=== PATIENT | male | born 1955 | race American Indian/Alaskan Native ===

== ENCOUNTER 2017-02-10 08:24 | Emergency (ER) | payer MEDICARE ==
[2017-02-10 09:01] VITALS: BP 147/87
--- NOTE | 2017-02-10 10:07 | Emergency Department Report ---
- General Chief complaint: Skin/Abscess/Foreign Body Stated complaint: LIP SWOLLEN Time Seen by Provider: 02/10/17 09:48 Source: patient Mode of arrival: Ambulatory Limitations: No Limitations - History of Present Illness Initial comments: She comes into the ER today with complaints of right upper lip swelling. Patient states that approximately 3 weeks ago he went to the [place] and few days afterwards noticed that he had some bumps pop up on the right upper lip. Since that time he has been seen by another doctor and prescribed Bactroban ointment as well as clindamycin. Patient states that he started the clindamycin 2 days ago and that after starting that medicine his lips started swelling up more. Patient denies any throat closing or swelling. - Related Data Home Medications Medication Instructions Recorded Confirmed Last Taken Mth/Me Blue/Sod Phos/Phen/Hyos 1 each PO TID 07/26/15 04/05/16 07/26/15 [Uribel Capsule] Previous Rx's Medication Instructions Recorded Last Taken Type Aspirin [Aspirin TAB] 325 mg PO QDAY #30 tablet 01/27/14 Unknown Rx Atenolol [Tenormin] 25 mg PO BID #60 tablet 01/27/14 Unknown Rx Clopidogrel [Plavix] 75 mg PO QDAY #30 tablet 01/27/14 Unknown Rx Rosuvastatin (Nf) [Crestor] 20 mg PO QHS #20 tablet 01/27/14 Unknown Rx HYDROcodone/APAP 7.5-325 [[place] 1 each PO Q6HR PRN #25 tablet 05/16/14 Unknown Rx 7.5-325 mg TAB] Azithromycin [Zithromax] 250 mg PO QDAY #6 tablet 04/07/16 Unknown Rx Butalb/Acetamin/Caff 50-325-40 1 tab PO Q8HR PRN #10 tablet 04/07/16 Unknown Rx [Fioricet] Clopidogrel [Plavix] 75 mg PO QDAY #30 tablet 04/07/16 Unknown Rx Cephalexin [Keflex] 500 mg PO Q8HR #30 cap 02/10/17 Unknown Rx Sulfamethoxazole/Trimethoprim 1 each PO BID #20 tablet 02/10/17 Unknown Rx [Bactrim DS TAB] Allergies Allergy/AdvReac Type Severity Reaction Status Date / Time No Known Allergies Allergy Verified 04/05/16 06:24 Abscess Boil HPI - HPI Chief Complaint: Skin/Abscess/Foreign Body Stated Complaint: LIP SWOLLEN Time Seen by Provider: 02/10/17 09:48 Home Medications: Home Medications Medication Instructions Recorded Confirmed Last Taken Mth/Me Blue/Sod Phos/Phen/Hyos 1 each PO TID 07/26/15 04/05/16 07/26/15 [Uribel Capsule] Previous Rx's Medication Instructions Recorded Last Taken Type Aspirin [Aspirin TAB] 325 mg PO QDAY #30 tablet 01/27/14 Unknown Rx Atenolol [Tenormin] 25 mg PO BID #60 tablet 01/27/14 Unknown Rx Clopidogrel [Plavix] 75 mg PO QDAY #30 tablet 01/27/14 Unknown Rx Rosuvastatin (Nf) [Crestor] 20 mg PO QHS #20 tablet 01/27/14 Unknown Rx HYDROcodone/APAP 7.5-325 [[place] 1 each PO Q6HR PRN #25 tablet 05/16/14 Unknown Rx 7.5-325 mg TAB] Azithromycin [Zithromax] 250 mg PO QDAY #6 tablet 04/07/16 Unknown Rx Butalb/Acetamin/Caff 50-325-40 1 tab PO Q8HR PRN #10 tablet 04/07/16 Unknown Rx [Fioricet] Clopidogrel [Plavix] 75 mg PO QDAY #30 tablet 04/07/16 Unknown Rx Cephalexin [Keflex] 500 mg PO Q8HR #30 cap 02/10/17 Unknown Rx Sulfamethoxazole/Trimethoprim 1 each PO BID #20 tablet 02/10/17 Unknown Rx [Bactrim DS TAB] Allergies/Adverse Reactions: Allergies Allergy/AdvReac Type Severity Reaction Status Date / Time No Known Allergies Allergy Verified 04/05/16 06:24 ED Review of Systems ROS: Stated complaint: LIP SWOLLEN Other details as noted in HPI Constitutional: denies: chills, fever Eyes: denies: eye pain, eye discharge, vision change ENT: other (lip swelling). denies: ear pain, throat pain Respiratory: denies: cough, shortness of breath, wheezing Cardiovascular: denies: chest pain, palpitations Endocrine: no symptoms reported Gastrointestinal: denies: abdominal pain, nausea, diarrhea Genitourinary: denies: urgency, dysuria Musculoskeletal: denies: back pain, joint swelling, arthralgia Skin: denies: rash, lesions Neurological: denies: headache, weakness, paresthesias Psychiatric: denies: anxiety, depression Hematological/Lymphatic: denies: easy bleeding, easy bruising ED Past Medical Hx - Past Medical History Previous Medical History?: Yes Hx Hypertension: Yes Hx CVA: Yes (right side) Hx Congestive Heart Failure: No Hx Diabetes: No Hx GERD: No Hx Asthma: Yes Hx COPD: No Hx HIV: No - Surgical History Past Surgical History?: Yes Additional Surgical History: RIGHT WRIST, SHOULDER SURGERY. RIGHT KNEE SURGERY - Social History Smoking Status: Current Every Day Smoker Substance Use Type: Alcohol - Medications Home Medications: Home Medications Medication Instructions Recorded Confirmed Last Taken Type Aspirin [Aspirin TAB] 325 mg PO QDAY #30 tablet 01/27/14 04/05/16 Unknown Rx Atenolol [Tenormin] 25 mg PO BID #60 tablet 01/27/14 04/05/16 Unknown Rx Clopidogrel [Plavix] 75 mg PO QDAY #30 tablet 01/27/14 04/05/16 Unknown Rx Rosuvastatin (Nf) [Crestor] 20 mg PO QHS #20 tablet 01/27/14 04/05/16 Unknown Rx HYDROcodone/APAP 7.5-325 [[place] 1 each PO Q6HR PRN #25 tablet 05/16/14 04/05/16 Unknown Rx 7.5-325 mg TAB] Mth/Me Blue/Sod Phos/Phen/Hyos 1 each PO TID 07/26/15 04/05/16 07/26/15 History [Uribel Capsule] Azithromycin [Zithromax] 250 mg PO QDAY #6 tablet 04/07/16 Unknown Rx Butalb/Acetamin/Caff 50-325-40 1 tab PO Q8HR PRN #10 tablet 04/07/16 Unknown Rx [Fioricet] Clopidogrel [Plavix] 75 mg PO QDAY #30 tablet 04/07/16 Unknown Rx Cephalexin [Keflex] 500 mg PO Q8HR #30 cap 02/10/17 Unknown Rx Sulfamethoxazole/Trimethoprim 1 each PO BID #20 tablet 02/10/17 Unknown Rx [Bactrim DS TAB] ED Physical Exam - General Limitations: No Limitations General appearance: alert, in no apparent distress - Head Head exam: Present: atraumatic, normocephalic - Eye Eye exam: Present: normal appearance. Absent: conjunctival injection - ENT ENT exam: Present: mucous membranes moist, TM's normal bilaterally, normal external ear exam, other (right upper lip swelling with external pustular lesions noted in right upper must area. Lip swelling is not indurated and is nontender.) - Neck Neck exam: Present: normal inspection - Respiratory Respiratory exam: Present: normal lung sounds bilaterally. Absent: respiratory distress - Cardiovascular Cardiovascular Exam: Present: regular rate, normal rhythm. Absent: systolic murmur, diastolic murmur, rubs, gallop - GI/Abdominal GI/Abdominal exam: Present: soft, normal bowel sounds - Rectal Rectal exam: Present: deferred - Extremities Exam Extremities exam: Present: normal inspection - Back Exam Back exam: Present: normal inspection - Neurological Exam Neurological exam: Present: alert, oriented X3 - Psychiatric Psychiatric exam: Present: normal affect, normal mood - Skin Skin exam: Present: warm, dry, intact, normal color. Absent: rash ED Course Vital Signs 02/10/17 02/10/17 08:31 09:00 Temperature 98.5 F 97 F L Pulse Rate 79 69 Respiratory 16 18 Rate Blood Pressure 168/108 Blood Pressure 147/87 [Left] O2 Sat by Pulse 99 97 Oximetry ED Medical Decision Making - Medical Decision Making Patient is nontoxic and hemodynamically stable. Patient is concerned that he may be having a reaction to the newly prescribed antibiotic. I will have the patient stop such antibiotic and start him on Bactrim and Keflex combination. Patient does state that he has an appointment with dermatology tomorrow and that I have encouraged him to keep that appointment. Patient's swelling does not correlate with induration or cellulitis and it may be due to the newly prescribed medicine. Patient is in agreement treatment plan patient is stable for discharge. Critical care attestation.: If time is entered above; I have spent that time in minutes in the direct care of this critically ill patient, excluding procedure time. 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
== END 2017-02-10 10:49 | disposition home or self-care (01) ==
LOC: ED 08:24
DX: L73.9 Follicular disorder, unspecified (principal); I10 Essential (primary) hypertension; J45.909 Unspecified asthma, uncomplicated; F17.200 Nicotine dependence, unspecified, uncomplicated
CPT/HCPCS: 99282

== ENCOUNTER 2017-08-10 06:34 | Emergency (ER) | payer MEDICARE ==
[2017-08-10 07:24] VITALS: BP 146/90
[2017-08-10 08:14] LABS: Bilirubin,Urine NEG (Negative); Blood,Urine NEG (Negative); Ketones,Urine NEG (Negative); Leukocyte Esterase,Urine SM (Negative); Mucus,Urine FEW /HPF; Nitrite,Urine NEG (Negative); Protein,Urine <15 mg/dL mg/dL (Negative); Urobilinogen,Urine < 2.0 mg/dL (<2.0)
[2017-08-10] MEDS ORDERED: ZITHROMAX PO ONE (09:28)
[2017-08-10] MEDS ORDERED: ROCEPHIN IM ONE (09:28)
[2017-08-10] MEDS ORDERED: XYLOCAINE 1% MPF 5 mL INFILTRATI ONE (09:28)
--- NOTE | 2017-08-10 09:32 | Emergency Department Report ---
ED Male HPI - General Chief complaint: Urogenital-Male Stated complaint: URINE LEAKAGE Time Seen by Provider: 08/10/17 09:04 Source: patient Mode of arrival: Ambulatory Limitations: No Limitations - History of Present Illness Initial comments: This is a 62-year-old male nontoxic, well nourished in appearance, no acute signs of distress presents to the ED with c/o of penile discharge 1 week. Patient that he had a sexual intercourse without protection last week and developed the symptoms. Patient denies any penile lesions, dysuria, polyuria, hematuria, back pain, penile ulcers, testicular pain, testicular swelling, chest pain, shortness of breath, headache, fever, chills, nausea or vomiting. She denies any abdominal pain or pelvic pain. Denies any allergies. Past medical history includes CVA and asthma. MD Complaint: penile discharge -: week(s) (1) Location: penis Radiation: none Severity: mild Consistency: constant Improves with: none Worsens with: none discharge. denies: swelling, mass, rash, urinary retention, blood in urine, dysuria, fever, nausea/vomiting, incontinence - Related Data Home Medications Medication Instructions Recorded Confirmed Last Taken Meth/Meblue/Sod Phos/Psal/Hyos 1 each PO TID 07/26/15 04/05/16 07/26/15 [Uribel Capsule] Previous Rx's Medication Instructions Recorded Last Taken Type Aspirin [Aspirin TAB] 325 mg PO QDAY #30 tablet 01/27/14 Unknown Rx Atenolol [Tenormin] 25 mg PO BID #60 tablet 01/27/14 Unknown Rx Clopidogrel [Plavix] 75 mg PO QDAY #30 tablet 01/27/14 Unknown Rx Rosuvastatin (Nf) [Crestor] 20 mg PO QHS #20 tablet 01/27/14 Unknown Rx HYDROcodone/APAP 7.5-325 [[place] 1 each PO Q6HR PRN #25 tablet 05/16/14 Unknown Rx 7.5-325 mg TAB] Azithromycin [Zithromax] 250 mg PO QDAY #6 tablet 04/07/16 Unknown Rx Butalb/Acetamin/Caff 50-325-40 1 tab PO Q8HR PRN #10 tablet 04/07/16 Unknown Rx [Fioricet] Clopidogrel [Plavix] 75 mg PO QDAY #30 tablet 04/07/16 Unknown Rx Cephalexin [Keflex] 500 mg PO Q8HR #30 cap 02/10/17 Unknown Rx Sulfamethoxazole/Trimethoprim 1 each PO BID #20 tablet 02/10/17 Unknown Rx [Bactrim DS TAB] Allergies Allergy/AdvReac Type Severity Reaction Status Date / Time No Known Allergies Allergy Verified 04/05/16 06:24 ED Review of Systems ROS: Stated complaint: URINE LEAKAGE Other details as noted in HPI Constitutional: denies: chills, fever Eyes: denies: eye pain, eye discharge, vision change ENT: denies: ear pain, throat pain Respiratory: denies: cough, shortness of breath, wheezing Cardiovascular: denies: chest pain, palpitations Endocrine: no symptoms reported Gastrointestinal: denies: abdominal pain, nausea, diarrhea Genitourinary: discharge. denies: urgency, dysuria Musculoskeletal: denies: back pain, joint swelling, arthralgia Skin: denies: rash, lesions Neurological: denies: headache, weakness, paresthesias Psychiatric: denies: anxiety, depression Hematological/Lymphatic: denies: easy bleeding, easy bruising ED Past Medical Hx - Past Medical History Previous Medical History?: Yes Hx Hypertension: Yes Hx CVA: Yes (right side) Hx Congestive Heart Failure: No Hx Diabetes: No Hx GERD: No Hx Asthma: Yes Hx COPD: No Hx HIV: No - Surgical History Past Surgical History?: Yes Additional Surgical History: RIGHT WRIST, SHOULDER SURGERY. RIGHT KNEE SURGERY - Social History Smoking Status: Current Every Day Smoker Substance Use Type: Alcohol, Marijuana, Prescribed - Medications Home Medications: Home Medications Medication Instructions Recorded Confirmed Last Taken Type Aspirin [Aspirin TAB] 325 mg PO QDAY #30 tablet 01/27/14 04/05/16 Unknown Rx Atenolol [Tenormin] 25 mg PO BID #60 tablet 01/27/14 04/05/16 Unknown Rx Clopidogrel [Plavix] 75 mg PO QDAY #30 tablet 01/27/14 04/05/16 Unknown Rx Rosuvastatin (Nf) [Crestor] 20 mg PO QHS #20 tablet 01/27/14 04/05/16 Unknown Rx HYDROcodone/APAP 7.5-325 [[place] 1 each PO Q6HR PRN #25 tablet 05/16/14 04/05/16 Unknown Rx 7.5-325 mg TAB] Meth/Meblue/Sod Phos/Psal/Hyos 1 each PO TID 07/26/15 04/05/16 07/26/15 History [Uribel Capsule] Azithromycin [Zithromax] 250 mg PO QDAY #6 tablet 04/07/16 Unknown Rx Butalb/Acetamin/Caff 50-325-40 1 tab PO Q8HR PRN #10 tablet 04/07/16 Unknown Rx [Fioricet] Clopidogrel [Plavix] 75 mg PO QDAY #30 tablet 04/07/16 Unknown Rx Cephalexin [Keflex] 500 mg PO Q8HR #30 cap 02/10/17 Unknown Rx Sulfamethoxazole/Trimethoprim 1 each PO BID #20 tablet 02/10/17 Unknown Rx [Bactrim DS TAB] ED Physical Exam - General Limitations: No Limitations General appearance: alert, in no apparent distress - Head Head exam: Present: atraumatic, normocephalic - Eye Eye exam: Present: normal appearance - ENT ENT exam: Present: mucous membranes moist - Neck Neck exam: Present: normal inspection - Respiratory Respiratory exam: Present: normal lung sounds bilaterally. Absent: respiratory distress - Cardiovascular Cardiovascular Exam: Present: regular rate, normal rhythm. Absent: systolic murmur, diastolic murmur, rubs, gallop - GI/Abdominal GI/Abdominal exam: Present: soft, normal bowel sounds - Rectal Rectal exam: Present: deferred - exam: Present: normal inspection, urethral discharge. Absent: testicular tenderness, scrotal swelling, vertical testicular lie, circumcision External exam: Present: normal external exam. Absent: erythema, swelling, lesions, lacerations, ecchymosis - Extremities Exam Extremities exam: Present: normal inspection, full ROM, normal capillary refill. Absent: tenderness, pedal edema, joint swelling, calf tenderness - Back Exam Back exam: Present: normal inspection, full ROM. Absent: tenderness, CVA tenderness (R), CVA tenderness (L), muscle spasm, paraspinal tenderness, vertebral tenderness, rash noted - Neurological Exam Neurological exam: Present: alert, oriented X3, CN II-XII intact, normal gait, reflexes normal - Psychiatric Psychiatric exam: Present: normal affect, normal mood - Skin Skin exam: Present: warm, dry, intact, normal color. Absent: rash ED Course Vital Signs 08/10/17 07:22 Temperature 97.7 F Pulse Rate 76 Respiratory 18 Rate Blood Pressure 146/90 O2 Sat by Pulse 98 Oximetry - Reevaluation(s) Reevaluation #1: 08/10/17 09:31 Patient is speaking in full sentences with no signs of distress noted. ED Medical Decision Making - Medical Decision Making This is a 62-year-old male that presents with possible STD exposure. Patient is stable and was examined by me. UA obtained with normal limits. Patient refused gonorrhea/chlamydia swab. Patient stated he wants to be treated empirically. Patient received Rocephin and azithromycin ED. Patient was instructed to have partner be evaluated. Patient was instructed Follow-up with a primary care doctor in 3-5 days or if symptoms worsen and continue return to emergency room as soon as possible. At time time of discharge, the patient does not seem toxic or ill in appearance. No acute signs of distress noted. Patient agrees to discharge treatment plan of care. No further questions noted by the patient. Critical care attestation.: If time is entered above; I have spent that time in minutes in the direct care of this critically ill patient, excluding procedure time. ED Disposition Clinical Impression: Possible exposure to STD Disposition: DC-01 TO HOME OR SELFCARE Is pt being admited?: No Does the pt Need Aspirin: No Condition: Stable Instructions: Sexually Transmitted Diseases (ED), Safe Sex (ED) Additional Instructions: Follow-up with a primary care doctor in 3-5 days or if symptoms worsen and continue return to emergency room as soon as possible. Referrals: JACE MCNALLY MD [Primary Care Provider] - 3-5 Days BLAYNE PEREZ MD [Staff Physician] - 3-5 Days [facility] [place] [Outside] - 3-5 Days [facility] [Outside] - 3-5 Days Forms: Work/School Release Form(ED)
== END 2017-08-10 10:04 | disposition home or self-care (01) ==
LOC: ED 06:34
DX: R36.9 Urethral discharge, unspecified (principal); I10 Essential (primary) hypertension; J45.909 Unspecified asthma, uncomplicated; I63.9 Cerebral infarction, unspecified; F12.10 Cannabis abuse, uncomplicated; F17.200 Nicotine dependence, unspecified, uncomplicated; Z79.82 Long term (current) use of aspirin
CPT/HCPCS: 81001; 96372; 99283; J0696

== ENCOUNTER 2017-12-24 08:45 | Outpatient (CLI) | payer MEDICARE ==
--- NOTE | 2017-12-24 10:12 | XRay Report ---
Right foot 3 views: History: Trauma, swelling and pain. Findings: There is osteopenia. No periosteal reaction or lytic lesion or soft tissue calcification. Mild arthritic changes at the first and second tarsometatarsal joints and the interphalangeal joint second third fourth and fifth toes. Impression: Findings as detailed above. No evidence of acute fracture.
== END 2017-12-24 08:46 | disposition home or self-care (01) ==
LOC: XRAY 08:45
PROVIDERS: ATTEND Internal Medicine
DX: S99.921A Unspecified injury of right foot, initial encounter (principal); M19.071 Primary osteoarthritis, right ankle and foot; M85.871 Other specified disorders of bone density and structure, right ankle and foot; X58.XXXA Exposure to other specified factors, initial encounter; Y93.89 Activity, other specified; Y92.89 Other specified places as the place of occurrence of the external cause; Y99.8 Other external cause status

== ENCOUNTER 2018-01-18 15:04 | Emergency (ER) | payer MEDICARE ==
[2018-01-18] MEDS ORDERED: NORCO 5/325 PO ONE (16:02)
--- NOTE | 2018-01-18 16:05 | Emergency Department Report ---
Chief Complaint: Headache Stated Complaint: HEADACHE Time Seen by Provider: 01/18/18 15:56 - HPI History of Present Illness: 62-year-old male presents to the emergency department with a complaint of worsening of a chronic headache. He says it has been going on for weeks but worsened and became consistent over the past 4 days. He does have a history of headaches and also has a history of CVA with some right-sided deficits. However he denies any slurred speech, vision change, acute weakness or any acute neurological deficits. He tried some Tylenol and tramadol for his symptoms without much relief. He has a primary care physician but has not seen them regarding his symptoms. The headache is mostly left-sided. - ROS Review of Systems: Positive for headache Negative for vision change, slurred speech, numbness, weakness - Exam Vital Signs: Vital Signs 01/18/18 15:09 Temperature 98.7 F Pulse Rate 83 Respiratory 18 Rate Blood Pressure 143/85 O2 Sat by Pulse 96 Oximetry Physical Exam: Patient is in no acute distress. Extraocular motions intact. Heart and lungs sounds are normal to auscultation. MSE screening note: Focused history and physical exam performed. Due to findings the following was ordered: We will obtain a CT of the head without contrast. I have ordered a CBC and BNP. The patient will start off with a [place] for discomfort. ED Disposition for MSE Condition: Stable Referrals: PRIMARY CARE [Primary Care Provider] - 3-5 Days
[2018-01-18 17:30] LABS: Basophils % (Auto) 0.3 % (0.0-1.8); Eosinophils # (Auto) 0.1 K/mm3 (0.0-0.4); Eosinophils % (Auto) 0.6 % (0.0-4.3); Hematocrit 45.1 % (35.5-45.6); Hemoglobin 15.3 gm/dl (11.8-15.2); Lymphocytes # (Auto) 1.9 K/mm3 (1.2-5.4); Lymphocytes % (Auto) 22.8 % (13.4-35.0); Mean Corpuscular HGB Conc 34 % (32-34); Mean Corpuscular Hemoglobin 29 pg (28-32); Mean Corpuscular Volume 86 fl (84-94); Monocytes # (Auto) 0.9 K/mm3 (0.0-0.8); Monocytes % (Auto) 11.2 % (0.0-7.3); Platelet Count 152 K/mm3 (140-440); Red Blood Count 5.27 M/mm3 (3.65-5.03); Red Cell Distribution Width 14.3 % (13.2-15.2)
[2018-01-18 17:53] LABS: BUN/Creatinine Ratio 9; Blood Urea Nitrogen 7 mg/dL (9-20); Calcium 8.9 mg/dL (8.4-10.2); Hemolysis Index 22
--- NOTE | 2018-01-18 19:21 | Emergency Department Report ---
ED Headache HPI - General Chief Complaint: Headache Stated Complaint: HEADACHE Time Seen by Provider: 01/18/18 15:56 Source: patient Exam Limitations: physical impairment (walks with a cane secondary to stroke) - History of Present Illness Initial Comments: History of Present Illness: 62-year-old male presents to the emergency department with a complaint of worsening of a chronic headache. He says it has been going on for weeks but worsened and became consistent over the past 4 days. He does have a history of headaches and also has a history of CVA with some right-sided deficits. However he denies any slurred speech, vision change, acute weakness or any acute neurological deficits. He tried some Tylenol and tramadol for his symptoms without much relief. He has a primary care physician but has not seen them regarding his symptoms. The headache is located bilateral frontal lobe but mostly left-sided. She should also with nasal congestion and runny nose. Pain is 6 out of 10 and feels like pressure and achy. Timing/Duration: increasing, waxing and waning, other (4 weeks) Quality: moderate (6/10) Head Injury Location: frontal Recent Head Trauma: occasional headaches Modifying Factors: improves with: movement Associated Symptoms: facial pain, nasal congestion, nasal drainage. denies: confusion, fatigue, fever/chills, flushing, loss of consciousness, nausea/ vomiting, numbness in legs/feet, rash, seizures, sinus infection, stiff neck, vision changes, weakness Allergies/Adverse Reactions: Allergies No Known Allergies Allergy (Verified 01/18/18 15:09) Home Medications: Ambulatory Orders Aspirin [Aspirin TAB] 325 mg PO QDAY #30 tablet 01/27/14 Atenolol [Tenormin] 25 mg PO BID #60 tablet 01/27/14 Clopidogrel [Plavix] 75 mg PO QDAY #30 tablet 01/27/14 Rosuvastatin (Nf) [Crestor] 20 mg PO QHS #20 tablet 01/27/14 HYDROcodone/APAP 7.5-325 [Somers 7.5-325 mg TAB] 1 each PO Q6HR PRN #25 tablet Meth/Meblue/Sod Phos/Psal/Hyos [Uribel Capsule] 1 each PO TID 07/26/15 Azithromycin [Zithromax] 250 mg PO QDAY #6 tablet 04/07/16 Butalb/Acetamin/Caff 50-325-40 [Fioricet] 1 tab PO Q8HR PRN #10 tablet 04/07/16 Clopidogrel [Plavix] 75 mg PO QDAY #30 tablet 04/07/16 Cephalexin [Keflex] 500 mg PO Q8HR #30 cap 02/10/17 Sulfamethoxazole/Trimethoprim [Bactrim DS TAB] 1 each PO BID #20 tablet Amoxicillin/K Clav Tab [Augmentin 875 mg] 1 tab PO Q12HR 7 Days #14 tab Cetirizine HCl [ZyrTEC] 10 mg PO QDAY 14 Days #14 capsule 01/18/18 Fluticasone [Flonase] 1 spray NS QDAY 14 Days #1 bottle 01/18/18 ED Review of Systems ROS: Stated complaint: HEADACHE Other details as noted in HPI Comment: All other systems reviewed and negative Constitutional: denies: chills, fever Eyes: denies: eye pain, eye discharge, vision change ENT: congestion. denies: ear pain, throat pain Respiratory: denies: cough, shortness of breath, SOB with exertion, SOB at rest , wheezing Cardiovascular: denies: chest pain, palpitations, orthopnea, edema Gastrointestinal: denies: abdominal pain, nausea, diarrhea Genitourinary: denies: urgency, dysuria Musculoskeletal: denies: back pain, joint swelling, arthralgia Skin: denies: rash, lesions Neurological: headache. denies: weakness, numbness, paresthesias, confusion, vertigo ED Past Medical Hx - Past Medical History Previous Medical History?: Yes Hx Hypertension: Yes Hx CVA: Yes (right side) Hx Congestive Heart Failure: No Hx Diabetes: No Hx GERD: No Hx Asthma: Yes Hx COPD: No Hx HIV: No - Surgical History Past Surgical History?: Yes Additional Surgical History: RIGHT WRIST, SHOULDER SURGERY. RIGHT KNEE SURGERY - Family History Family history: hypertension - Social History Smoking Status: Never Smoker Substance Use Type: None - Medications Home Medications: Home Medications Medication Instructions Recorded Confirmed Last Taken Type Aspirin [Aspirin TAB] 325 mg PO QDAY #30 tablet 01/27/14 04/05/16 Unknown Rx Atenolol [Tenormin] 25 mg PO BID #60 tablet 01/27/14 04/05/16 Unknown Rx Clopidogrel [Plavix] 75 mg PO QDAY #30 tablet 01/27/14 04/05/16 Unknown Rx Rosuvastatin (Nf) [Crestor] 20 mg PO QHS #20 tablet 01/27/14 04/05/16 Unknown Rx HYDROcodone/APAP 7.5-325 [Somers 1 each PO Q6HR PRN #25 tablet 05/16/14 04/05/16 Unknown Rx 7.5-325 mg TAB] Meth/Meblue/Sod Phos/Psal/Hyos 1 each PO TID 07/26/15 04/05/16 07/26/15 History [Uribel Capsule] Azithromycin [Zithromax] 250 mg PO QDAY #6 tablet 04/07/16 Unknown Rx Butalb/Acetamin/Caff 50-325-40 1 tab PO Q8HR PRN #10 tablet 04/07/16 Unknown Rx [Fioricet] Clopidogrel [Plavix] 75 mg PO QDAY #30 tablet 04/07/16 Unknown Rx Cephalexin [Keflex] 500 mg PO Q8HR #30 cap 02/10/17 Unknown Rx Sulfamethoxazole/Trimethoprim 1 each PO BID #20 tablet 02/10/17 Unknown Rx [Bactrim DS TAB] Amoxicillin/K Clav Tab [Augmentin 1 tab PO Q12HR 7 Days #14 tab 01/18/18 Unknown Rx 875 mg] Cetirizine HCl [ZyrTEC] 10 mg PO QDAY 14 Days #14 capsule 01/18/18 Unknown Rx Fluticasone [Flonase] 1 spray NS QDAY 14 Days #1 bottle 01/18/18 Unknown Rx ED Physical Exam - General Limitations: Physical Limitation General appearance: alert, in no apparent distress - Head Head exam: Present: atraumatic, normocephalic, normal inspection, other (normal exam) - Eye Eye exam: Present: normal appearance, PERRL, EOMI. Absent: nystagmus, periorbital swelling, periorbital tenderness Pupils: Present: normal accommodation - ENT ENT exam: Present: normal orophraynx, mucous membranes moist, TM's normal bilaterally, normal external ear exam, other (nasal mucosa congested with erythema and clear drainage. Frontal sinuses tender to palpate.) - Neck Neck exam: Present: normal inspection, full ROM, other (no C-spine tenderness). Absent: tenderness, lymphadenopathy - Respiratory Respiratory exam: Present: normal lung sounds bilaterally. Absent: respiratory distress, chest wall tenderness, accessory muscle use - Cardiovascular Cardiovascular Exam: Present: regular rate, normal rhythm, normal heart sounds. Absent: systolic murmur, diastolic murmur - GI/Abdominal GI/Abdominal exam: Present: soft, normal bowel sounds. Absent: distended, tenderness, guarding, rebound, rigid, bruit, pulsatile mass - Extremities Exam Extremities exam: Present: normal inspection, full ROM, normal capillary refill , other (no clubbing, cyanosis or edema. +2 pulses to all extremities and no neurovascular compromise. Patient will right-sided weakness due to previous stroke. Right side is weaker than left side. He has full range of motion to all extremities but slow on the right side which is normal for him per patient) . Absent: tenderness, pedal edema, joint swelling, calf tenderness - Back Exam Back exam: Present: normal inspection, full ROM, other (ambulates without any difficulties but uses a cane which is normal for patient status post CVA). Absent: tenderness, CVA tenderness (R), CVA tenderness (L), muscle spasm, paraspinal tenderness, vertebral tenderness, rash noted - Neurological Exam Neurological exam: Present: alert, oriented X3, abnormal gait (this is chronic due to previous stroke and he ambulates with a cane), motor sensory deficit ( right-sided weakness status post CVA strength is 4/10 on right side and 5/5 on the left side), reflexes normal - Expanded Neurological Exam Expanded Neurological exam: Absent: innattentive, memory loss-remote event, memory loss- recent event, ataxia, receptive aphasia, expressive aphasia, total aphasia, tremor, protecting the airway Speech: Present: fluid speech Cranial nerves: EOM's Intact: Normal, Gag Reflex: Normal, Tongue Deviation: Normal, Nystagmus: Normal, Facial Sensation: Normal, Facial Palsy with Forehead Movement: Normal Cerebellar function: Finger to Nose: Normal, Romberg: Abnormal Right (chronic secondary to stroke.) Upper motor neuron: Pronator Drift: Abnormal Right (this is chronic secondary to stroke), Sensory Extinction: Normal Sensory exam: Upper Extremity Light Touch: Normal, Upper Extremity Temperature: Normal, UE 2 Point Discrimination: Normal, Lower Extremity Light Touch: Normal, Lower Extremity Temperature: Normal, LE 2 Point Discrimination: Normal Motor strength exam: RUE: 4, LUE: 5, RLE: 4, LLE: 5 Best Eye Response ([place]): (4) open spontaneously Best Motor Response (Brit): (6) obeys commands Best Verbal Response (Brit): (5) oriented Brit Total: 15 - Psychiatric Psychiatric exam: Present: normal affect, normal mood - Skin Skin exam: Present: warm, dry, intact, normal color. Absent: rash ED Course Vital Signs 01/18/18 01/18/18 01/18/18 15:09 16:13 19:26 Temperature 98.7 F 99.4 F Pulse Rate 83 82 Respiratory 18 16 16 Rate Blood Pressure 143/85 Blood Pressure 134/78 [Left] O2 Sat by Pulse 96 95 Oximetry - Reevaluation(s) Reevaluation #1: 01/18/18 19:59 Patient was given hydrocodone 5/325 one tablet in the emergency room which she reports that helped his pain. He is tolerating juices well without any difficulties. Patient and voiced relief of pain. ED Medical Decision Making - Lab Data Result diagrams: 01/18/18 16:49 01/18/18 16:49 Lab Results 01/18/18 01/18/18 Range/Units 16:49 16:49 WBC 8.5 (4.5-11.0) K/mm3 RBC 5.27 H (3.65-5.03) M/mm3 Hgb 15.3 H (11.8-15.2) gm/dl Hct 45.1 (35.5-45.6) % MCV 86 (84-94) fl MCH 29 (28-32) pg MCHC 34 (32-34) % RDW 14.3 (13.2-15.2) % Plt Count 152 (140-440) K/mm3 Lymph % (Auto) 22.8 (13.4-35.0) % Banner % (Auto) 11.2 H (0.0-7.3) % Eos % (Auto) 0.6 (0.0-4.3) % Baso % (Auto) 0.3 (0.0-1.8) % Lymph # 1.9 (1.2-5.4) K/mm3 Banner # 0.9 H (0.0-0.8) K/mm3 Eos # 0.1 (0.0-0.4) K/mm3 Baso # 0.0 (0.0-0.1) K/mm3 Seg Neutrophils % 65.1 (40.0-70.0) % Seg Neutrophils # 5.5 (1.8-7.7) K/mm3 Sodium 131 L (137-145) mmol/L Potassium 4.1 (3.6-5.0) mmol/L Chloride 93.7 L (98-107) mmol/L Carbon Dioxide 24 (22-30) mmol/L Anion Gap 17 mmol/L BUN 7 L (9-20) mg/dL Creatinine 0.8 (0.8-1.5) mg/dL Estimated GFR > 60 ml/min BUN/Creatinine Ratio 9 % Glucose 104 H (75-100) mg/dL Calcium 8.9 (8.4-10.2) mg/dL - Radiology Data Radiology results: report reviewed CT scan of the brain and head without contrast shows patient with old deep white matter infarct. Chronic right mastoiditis. Paranasal sinus thickness mucosal thickening . No acute findings - Medical Decision Making 62-year-old male here complaining of headache over the last 4 weeks. He also reports sinus congestion and nasal drainage and without any other symptoms. Patient was screened and labs and radiology tests ordered by Dr. Desir. I saw this patient and he is stable after treatment. He had CT scan done and was dictated by radiologist which showed no acute findings except Chronic mastoiditis which she does not have any tenderness at his mastoid bone and paranasal mucosal sinus thickening. Patient voiced understanding and laboratory results and CT scan results. CT scan-old deep white matter infarct. Chronic right mastoiditis. Paranasal sinus mucosal thickening as directed. Labs: CBC stable, CMP with mild hyponatremia at 131 A/P 1: Acute headache-resolved. Hydrocodone 5/325 mg 1 tablet emergency room for headache. 2: Sinusitis-we'll place on Zyrtec, Flonase and antibiotic. 3: Hyponatremia, mild-patient is able to tolerate liquids and food well. Sodium was at 131. Chart reviewed and he has a history of hyponatremia. Prescription for: Zyrtec, Flonase and Augmentin Discharge teaching composition molder in medication, diagnosis, treatment plan and follow- up. Patient voided understanding Patient discharged home from emergency room in stable condition to follow up with his primary care physician in one to 2 days. He is stable and pain is controlled. This starts teaching and given on sinusitis, acute headache and hyponatremia. I discussed him that he needs to make sure that he drinks Gatorade and eat normally to increase the sodium. I also instructed him to flush his nostrils with nasal saline spray at least twice a day to relieve congestion. CT scan results and laboratory results discussed the patient and he voiced understanding. Vital signs are stable and is afebrile. Discharged home from emergency room in stable condition. - Differential Diagnosis CVA, aneurysm, headache of unknown cause, sinusitis, rhinitis Critical care attestation.: If time is entered above; I have spent that time in minutes in the direct care of this critically ill patient, excluding procedure time. ED Disposition Clinical Impression: Hyponatremia Headache Qualifiers: Headache type: unspecified Headache chronicity pattern: acute headache Intractability: not intractable Qualified Code(s): R51 - Headache Sinusitis Qualifiers: Sinusitis location: unspecified location Chronicity: unspecified Qualified Code (s): J32.9 - Chronic sinusitis, unspecified Disposition: DC-01 TO HOME OR SELFCARE Is pt being admited?: No Does the pt Need Aspirin: No Condition: Stable Instructions: Sinusitis (ED), Hyponatremia (ED), Acute Headache (ED) Additional Instructions: Please follow-up with your primary care physician in one to 2 days. Call tomorrow to schedule an appointment Take medication as instructed Take nostrils out with saline nasal wash If headache recurs and not better with medication, please return to the emergency room Prescriptions: Amoxicillin/K Clav Tab [Augmentin 875 mg] 1 tab PO Q12HR 7 Days #14 tab Cetirizine HCl [ZyrTEC] 10 mg PO QDAY 14 Days #14 capsule Fluticasone [Flonase] 1 spray NS QDAY 14 Days #1 bottle Referrals: JAG VALENTIN MD [Staff Physician] - 2-3 Days PRIMARY CARE, [Primary Care Provider] - 2-3 Days
[2018-01-18 19:28] VITALS: BP 134/78
--- NOTE | 2018-01-19 14:30 | Cat Scan Report ---
FINAL REPORT PROCEDURE: CT head without contrast. TECHNIQUE: Computerized tomography of the head was performed without contrast material. HISTORY: Headache. COMPARISON: CT head 04/02/2016. FINDINGS: The ventricles are normal in size. There is some diminished attenuation within the deep white matter of the left frontal lobe. This involves a portion of the left parietal lobe as well. This is unchanged and is consistent with chronic ischemic injury. The remaining vargas matter and white matter appear normal. There are no mass lesions. There is no intracranial hemorrhage. The calvarium appears intact. There is some fluid in several of the right mastoid air cells. There is mild mucosal thickening in the right maxillary sinus. There is moderate mucosal thickening in the right frontal sinus and right anterior ethmoid air cells. IMPRESSION: Old deep white matter infarct. Chronic right mastoiditis. Paranasal sinus mucosal thickening as described.
== END 2018-01-18 20:24 | disposition home or self-care (01) ==
LOC: ED 15:04
DX: J32.9 Chronic sinusitis, unspecified (principal); E87.1 Hypo-osmolality and hyponatremia; R51 Headache; I10 Essential (primary) hypertension; Z86.73 Personal history of transient ischemic attack (TIA), and cerebral infarction without residual deficits; J45.909 Unspecified asthma, uncomplicated; Z79.82 Long term (current) use of aspirin
CPT/HCPCS: 36415; 70450; 80048; 85025

== ENCOUNTER 2019-01-05 12:48 | Outpatient (CLI) | payer MEDICARE ==
--- NOTE | 2019-01-05 13:53 | XRay Report ---
ROUTINE CHEST, TWO VIEWS: HISTORY: COPD. The trachea, heart, mediastinal contour, lung gomez and bony thorax are unremarkable. No significant change since 07/25/18. IMPRESSION: Unremarkable chest x-ray.
== END 2019-01-05 12:49 | disposition home or self-care (01) ==
LOC: XRAY 12:48
PROVIDERS: ATTEND Internal Medicine
DX: J44.9 Chronic obstructive pulmonary disease, unspecified (principal); E78.5 Hyperlipidemia, unspecified; E78.00 Pure hypercholesterolemia, unspecified
CPT/HCPCS: 71046

== ENCOUNTER 2019-08-23 18:10 | Emergency (ER) | payer MEDICARE ==
[2019-08-23 19:57] LABS: Bilirubin,Urine NEG (Negative); Blood,Urine LG (Negative); Color,Urine Yellow (Yellow); Mucus,Urine FEW /HPF; Protein,Urine <15 mg/dL mg/dL (Negative); RBC,Urine > 182.0 /HPF (0.0-6.0); Urobilinogen,Urine < 2.0 mg/dL (<2.0)
--- NOTE | 2019-08-24 01:00 | Cat Scan Report ---
CT ABDOMEN AND PELVIS WITHOUT CONTRAST INDICATION: Left-sided abdominal pain. TECHNICAL: Multiple axial CT images of the abdomen and pelvis were acquired without intravenous contr ast. Sagittal and coronal reformats were obtained. All CTs at this facility utilize dose reduction techniques including automated exposure control, iterative reconstruction and weight based dosing whe n appropriate to reduce patient radiation dose to as low as reasonable achievable. COMPARISON: No relevant prior studies are available for comparison. FINDINGS: Limited imaging of the bilateral lung bases demonstrates no evidence of acute abnormality. Abdomen: There are several scattered low-density lesions noted throughout the liver, the largest of w hich measures 1 cm. These are indeterminate due to their small size and difficult to evaluate without intravenous contrast. The gallbladder, spleen, pancreas, bilateral adrenal glands and bilateral kidn eys show no evidence of acute abnormality. There is a hypodense lesion within the upper pole of the l eft kidney measuring 2.8 cm. Additionally, there is a multi cystic lesion with peripheral calcificati ons within the lower pole of the left kidney measuring 4.1 x 3.7 cm. There is no associated hydroneph rosis. There is no evidence of bowel obstruction or free fluid. The appendix is visualized and appear s normal. Pelvis: There is moderate diverticulosis of the sigmoid colon without evidence for diverticulitis. Th e urinary bladder appears grossly normal. There is evidence of previous radiation therapy within the prostate. Bones and Soft Tissues: Evaluation of bony structures demonstrates no evidence of acute bony abnorma lity. There is degenerative disc space narrowing at the L5-S1 level. Evaluation of soft tissue struct ures demonstrates no acute soft tissue abnormality. IMPRESSION: 1. Multicystic lesion arising from the lower pole of the left kidney as described with peripheral julien cifications. Findings are concerning for a possible renal neoplasm, particularly in this patient with left-sided flank pain. A CT of the abdomen and pelvis with contrast when the patient's clinical cond ition permits would be helpful for additional evaluation. 2. Low density exophytic lesion within the upper pole of the right kidney which would also be better evaluated with CT of the abdomen and pelvis with contrast. 3. Scattered low density lesions within the liver which are indeterminate on the basis of today's radha dy. Signer Name: Carolyn Phillips MD Signed: 08/24/2019 12:56 AM Workstation Name: [employer]
--- NOTE | 2019-08-24 01:27 | Emergency Department Report ---
ED Male HPI - General Chief complaint: Urogenital-Male Stated complaint: BLOOD IN URINE Time Seen by Provider: 08/23/19 23:54 Source: patient Mode of arrival: Ambulatory Limitations: No Limitations - History of Present Illness Initial comments: Mr. Moore is a 64-year-old -[place] male with history of prostatitis , followed by urology. Patient presents today for hematuria bladder spasms 1 week. Patient denies fevers or chills there's no nausea vomiting. Patient currently not on a blood thinner. And has urology follow-up with Dr. Panchal. This is only sure he didn't have a bladder infection. As he has had hematuria in the past. There is no testicular swelling or penile discharge. MD Complaint: dysuria, other (hematuria) Onset/Timin -: week(s) Location: penis, right flank Severity: moderate Severity scale (0 -10): 4 Quality: aching Consistency: intermittent Improves with: none Worsens with: none blood in urine, dysuria. denies: discharge, swelling, mass, rash, urinary retention, fever, nausea/vomiting, incontinence - Related Data Sexually active: No Previous Rx's Medication Instructions Recorded Last Taken Type Aspirin 325 mg PO QDAY #30 tablet 01/27/14 Unknown Rx Rosuvastatin (Nf) [Crestor] 20 mg PO QHS #20 tablet 01/27/14 Unknown Rx atenoloL [Tenormin] 25 mg PO BID #60 tablet 01/27/14 Unknown Rx Clopidogrel [Plavix] 75 mg PO QDAY #30 tablet 04/07/16 Unknown Rx Albuterol Sulfate [Proair 90 mcg IH Q4HR PRN #2 aer.pow.ba 07/25/18 Unknown Rx Respiclick] Benzonatate [Tessalon Perles] 100 mg PO Q8HR PRN #30 capsule 07/25/18 Unknown Rx Fluticasone [Flonase] 1 spray NS QDAY #1 bottle 07/25/18 Unknown Rx Ibuprofen [Motrin] 400 mg PO Q8H PRN #30 tablet 07/25/18 Unknown Rx Nicotine [Nicotine Patch] 1 each TD QDAY #30 patch.td24 07/25/18 Unknown Rx Acetaminophen/Codeine [Tylenol 1 tab PO Q6H PRN #12 tab 08/24/19 Unknown Rx /Codeine # 3 tab] levoFLOXacin [Levaquin TAB] 500 mg PO QDAY #10 tablet 08/24/19 Unknown Rx Allergies Allergy/AdvReac Type Severity Reaction Status Date / Time No Known Allergies Allergy Verified 01/18/18 15:09 ED Review of Systems ROS: Stated complaint: BLOOD IN URINE Other details as noted in HPI Constitutional: denies: chills, fever Eyes: denies: eye pain, eye discharge, vision change ENT: denies: ear pain, throat pain Respiratory: denies: cough, shortness of breath, wheezing Cardiovascular: denies: chest pain, palpitations Endocrine: no symptoms reported Gastrointestinal: denies: abdominal pain, nausea, vomiting, diarrhea, constipation, melena Genitourinary: hematuria. denies: urgency, dysuria, frequency, testicular pain, testicular mass Musculoskeletal: denies: back pain, joint swelling, arthralgia Skin: denies: rash, lesions Neurological: denies: headache, weakness, paresthesias Psychiatric: denies: anxiety, depression Hematological/Lymphatic: denies: easy bleeding, easy bruising ED Past Medical Hx - Past Medical History Previous Medical History?: Yes Hx Hypertension: Yes Hx CVA: Yes (right side) Hx Congestive Heart Failure: No Hx Diabetes: No Hx GERD: No Hx Asthma: Yes Hx COPD: No Hx HIV: No - Surgical History Past Surgical History?: Yes Additional Surgical History: RIGHT WRIST, SHOULDER SURGERY. RIGHT KNEE SURGERY - Social History Smoking Status: Current Every Day Smoker Substance Use Type: Alcohol, Marijuana - Medications Home Medications: Home Medications Medication Instructions Recorded Confirmed Last Taken Type Aspirin 325 mg PO QDAY #30 tablet 01/27/14 07/25/18 Unknown Rx Rosuvastatin (Nf) [Crestor] 20 mg PO QHS #20 tablet 01/27/14 07/25/18 Unknown Rx atenoloL [Tenormin] 25 mg PO BID #60 tablet 01/27/14 07/25/18 Unknown Rx Clopidogrel [Plavix] 75 mg PO QDAY #30 tablet 04/07/16 07/25/18 Unknown Rx Albuterol Sulfate [Proair 90 mcg IH Q4HR PRN #2 aer.pow.ba 07/25/18 Unknown Rx Respiclick] Benzonatate [Tessalon Perles] 100 mg PO Q8HR PRN #30 capsule 07/25/18 Unknown Rx Fluticasone [Flonase] 1 spray NS QDAY #1 bottle 07/25/18 Unknown Rx Ibuprofen [Motrin] 400 mg PO Q8H PRN #30 tablet 07/25/18 Unknown Rx Nicotine [Nicotine Patch] 1 each TD QDAY #30 patch.td24 07/25/18 Unknown Rx Acetaminophen/Codeine [Tylenol 1 tab PO Q6H PRN #12 tab 08/24/19 Unknown Rx /Codeine # 3 tab] levoFLOXacin [Levaquin TAB] 500 mg PO QDAY #10 tablet 08/24/19 Unknown Rx ED Physical Exam - General Limitations: No Limitations General appearance: alert, in no apparent distress - Head Head exam: Present: atraumatic, normocephalic - Eye Eye exam: Present: normal appearance, PERRL, EOMI Pupils: Present: normal accommodation - ENT ENT exam: Present: mucous membranes moist - Neck Neck exam: Present: normal inspection, full ROM. Absent: tenderness - Respiratory Respiratory exam: Present: normal lung sounds bilaterally. Absent: respiratory distress, wheezes, stridor, chest wall tenderness - Cardiovascular Cardiovascular Exam: Present: regular rate, normal rhythm, normal heart sounds. Absent: systolic murmur, diastolic murmur, rubs, gallop - GI/Abdominal GI/Abdominal exam: Present: soft, normal bowel sounds. Absent: distended, tenderness, guarding, rebound, rigid, bruit, hernia - Rectal Rectal exam: Present: deferred - Extremities Exam Extremities exam: Present: normal inspection, full ROM. Absent: tenderness - Back Exam Back exam: Present: normal inspection, full ROM, tenderness, CVA tenderness (R). Absent: CVA tenderness (L), vertebral tenderness, rash noted - Neurological Exam Neurological exam: Present: alert, oriented X3, CN II-XII intact, normal gait - Psychiatric Psychiatric exam: Present: normal affect, normal mood - Skin Skin exam: Present: warm, dry, intact, normal color. Absent: rash ED Course Vital Signs 08/23/19 18:27 Temperature 98.7 F Pulse Rate 88 Respiratory 16 Rate Blood Pressure 143/85 O2 Sat by Pulse 98 Oximetry ED Medical Decision Making - Lab Data Result diagrams: 08/24/19 01:02 08/24/19 01:02 Labs 08/23/19 08/24/19 08/24/19 19:30 01:02 01:02 WBC 8.7 RBC 5.01 Hgb 14.3 Hct 43.0 MCV 86 MCH 29 MCHC 33 RDW 14.3 Plt Count 180 Lymph % (Auto) 51.4 H Holmes % (Auto) 10.8 H Eos % (Auto) 2.5 Baso % (Auto) 0.3 Lymph # 4.5 Holmes # 0.9 H Eos # 0.2 Baso # 0.0 Seg Neutrophils % 35.0 L Seg Neutrophils # 3.0 PT INR APTT Sodium 137 Potassium 3.9 Chloride 101.4 Carbon Dioxide 22 Anion Gap 18 BUN 13 Creatinine 0.8 Estimated GFR > 60 BUN/Creatinine Ratio 16 Glucose 220 H Calcium 9.0 Total Bilirubin 0.30 AST 17 ALT 16 Alkaline Phosphatase 102 Total Protein 7.7 Albumin 4.4 Albumin/Globulin Ratio 1.3 Urine Color Yellow Urine Turbidity Clear Urine pH 6.0 Ur Specific [place] 1.016 Urine Protein <15 mg/dl Urine Glucose (UA) Neg Urine Ketones Neg Urine Blood Lg Urine Nitrite Neg Urine Bilirubin Neg Urine Urobilinogen < 2.0 Ur Leukocyte Esterase Neg Urine WBC (Auto) 3.0 Urine RBC (Auto) > 182.0 Urine Mucus Few 08/24/19 01:02 WBC RBC Hgb Hct MCV MCH MCHC RDW Plt Count Lymph % (Auto) Holmes % (Auto) Eos % (Auto) Baso % (Auto) Lymph # Holmes # Eos # Baso # Seg Neutrophils % Seg Neutrophils # PT 13.5 INR 1.02 APTT 36.3 Sodium Potassium Chloride Carbon Dioxide Anion Gap BUN Creatinine Estimated GFR BUN/Creatinine Ratio Glucose Calcium Total Bilirubin AST ALT Alkaline Phosphatase Total Protein Albumin Albumin/Globulin Ratio Urine Color Urine Turbidity Urine pH Ur Specific [place] Urine Protein Urine Glucose (UA) Urine Ketones Urine Blood Urine Nitrite Urine Bilirubin Urine Urobilinogen Ur Leukocyte Esterase Urine WBC (Auto) Urine RBC (Auto) Urine Mucus - Radiology Data Radiology results: report reviewed, image reviewed Ordering Physician: JAKE MARLEY NP Date of Service: 08/24/19 Procedure(s): CT abdomen pelvis wo con Accession Number(s): [id number] cc: JAKE MARLEY NP CT ABDOMEN AND PELVIS WITHOUT CONTRAST INDICATION: Left-sided abdominal pain. TECHNICAL: Multiple axial CT images of the abdomen and pelvis were acquired without intravenous contrast. Sagittal and coronal reformats were obtained. All CTs at this facility utilize dose reduction techniques including automated exposure control, iterative reconstruction and weight based dosing when appropriate to reduce patient radiation dose to as low as reasonable achievable. COMPARISON: No relevant prior studies are available for comparison. FINDINGS: Limited imaging of the bilateral lung bases demonstrates no evidence of acute abnormality. Abdomen: There are several scattered low-density lesions noted throughout the liver, the largest of which measures 1 cm. These are indeterminate due to their small size and difficult to evaluate without intravenous contrast. The gallbladder, spleen, pancreas, bilateral adrenal glands and bilateral kidneys show no evidence of acute abnormality. There is a hypodense l esion within the upper pole of the left kidney measuring 2.8 cm. Additionally, there is a multi cystic lesion with peripheral calcifications within the lower pole of the left kidney measuring 4.1 x 3.7 cm. There is no associated hydronephrosis. There is no evidence of bowel obstruction or free fluid. The appendix is visualized and appears normal. Pelvis: There is moderate diverticulosis of the sigmoid colon without evidence for diverticulitis. The urinary bladder appears grossly normal. There is evidence of previous radiation therapy within the prostate. Bones and Soft Tissues: Evaluation of bony structures demonstrates no evidence of acute bony abnormality. There is degenerative disc space narrowing at the L5-S1 level. Evaluation of soft tissue structures demonstrates no acute soft tissue abnormality. IMPRESSION: 1. Multicystic lesion arising from the lower pole of the left kidney as described with peripheral calcifications. Findings are concerning for a possible renal neoplasm, pa rticularly in this patient with left-sided flank pain. A CT of the abdomen and pelvis with contrast when the patient's clinical condition permits would be helpful for additional evaluation. 2. Low density exophytic lesion within the upper pole of the right kidney which would also be better evaluated with CT of the abdomen and pelvis with contrast. 3. Scattered low density lesions within the liver which are indeterminate on the basis of today's study. Signer Name: Carolyn Phillips MD Signed: 08/24/2019 12:56 AM Workstation Name: [id number] Transcribed By: JULIO Dictated By: Carolyn Phillips MD Electronically Authenticated By: Carolyn Phillips MD Signed Date/Time: 08/24/19 0056 DD/ 0049 TD/TT: - Medical Decision Making pt offered admission for evaluation of hematuria, with multiple renal Cyst, concern for neoplasm, as he has hx of prostate CA and s/p TURP3 yrs ago, All labs are stable, CT Abd and Pelvis: multiple renal cyst, pt advised TURP and Radiation tx 3 yrs ago, has Urology follow up with Dr. Panchal will call tomorrow to expidite appointment, will follow up with Nephrology Dr. Montejo in 2-3 days for evaluation of renal , cyst, plan: levaquin, tylenol, continue to hydrate , return to ed if unable to void, pt verbalizes agreement and understanding of discharge plan will follow up with pcp Dr Posadas, and Specialist in [place]. pt is in stable condition at this time, and voiding without difficulty. Critical care attestation.: If time is entered above; I have spent that time in minutes in the direct care of this critically ill patient, excluding procedure time. ED Disposition Clinical Impression: Hematuria Qualifiers: Hematuria type: unspecified type Qualified Code(s): R31.9 - Hematuria, unspecified Disposition: TO HOME OR SELFCARE Is pt being admited?: No Does the pt Need Aspirin: No Condition: Stable Instructions: Acute Hematuria (ED) Prescriptions: levoFLOXacin [Levaquin TAB] 500 mg PO QDAY #10 tablet Acetaminophen/Codeine [Tylenol /Codeine # 3 tab] 1 tab PO Q6H PRN #12 tab PRN Reason: pain Referrals: DIANA PANCHAL MD [Staff Physician] - [facility] BENITA MONTEJO MD [Staff Physician] - [facility] MASTER SPRINGER MD [Staff Physician] - [facility] Time of Disposition: 02:33
[2019-08-24 01:38] LABS: Basophils % (Auto) 0.3 % (0.0-1.8); Eosinophils # (Auto) 0.2 K/mm3 (0.0-0.4); Eosinophils % (Auto) 2.5 % (0.0-4.3); Hemoglobin 14.3 gm/dl (11.8-15.2); Lymphocytes # (Auto) 4.5 K/mm3 (1.2-5.4); Lymphocytes % (Auto) 51.4 % (13.4-35.0); Mean Corpuscular HGB Conc 33 % (32-34); Mean Corpuscular Volume 86 fl (84-94); Monocytes # (Auto) 0.9 K/mm3 (0.0-0.8); Monocytes % (Auto) 10.8 % (0.0-7.3); Platelet Count 180 K/mm3 (140-440); Red Blood Count 5.01 M/mm3 (3.65-5.03); Red Cell Distribution Width 14.3 % (13.2-15.2)
[2019-08-24 01:51] LABS: INR 1.02 (0.87-1.13)
[2019-08-24 01:52] LABS: Partial Thromboplastin Time 36.3 Sec. (24.2-36.6)
[2019-08-24 02:03] LABS: Alanine Aminotransferase 16 units/L (7-56); Albumin 4.4 g/dL (3.9-5); BUN/Creatinine Ratio 16; Blood Urea Nitrogen 13 mg/dL (9-20); Hemolysis Index 4
[2019-08-24 02:48] VITALS: BP 140/80
== END 2019-08-24 02:46 | disposition home or self-care (01) ==
LOC: ED 18:10
DX: R31.9 Hematuria, unspecified (principal); R30.0 Dysuria; I10 Essential (primary) hypertension; J45.909 Unspecified asthma, uncomplicated; F17.200 Nicotine dependence, unspecified, uncomplicated; F12.10 Cannabis abuse, uncomplicated
CPT/HCPCS: 36415; 74176; 80053; 81001; 85025; 85610; 85730; 99284

== ENCOUNTER 2021-02-24 01:46 | Inpatient (IN) | payer MEDICARE ==
--- NOTE | 2021-02-24 02:27 | Emergency Department Report ---
ED Chest Pain HPI - General Chief Complaint: Chest Pain Stated Complaint: CHEST PAIN PUI?: No Time Seen by Provider: 02/24/21 02:16 Source: patient, EMS Mode of arrival: Stretcher Limitations: No Limitations - History of Present Illness Initial Comments: Patient is a 65-year-old male presents emergency room with complaints of pain. Patient's chest pain started 1 hour ago. Patient states chest pain is constant. Patient states he had to call EMS. Patient states he left prior to hospital. Patient states the EMS gave him aspirin in route. Patient denies shortness of breath. Patient denies acid reflux. Patient denies blood pain. Patient denies history of [place]. Patient states he has history of right CVA, diabetes, hype rtension and hyperlipidemia. Patient states he is compliant with his medication. Patient denies recent travel. Patient denies recent international travel. Patient denies exposure to the novel coronavirus. Patient denies sick contacts. Patient denies fever and chills. Patient denies cough. Patient denies diarrhea. Patient denies coming in contact with anybody with symptoms of the novel coronavirus. MD Complaint: chest pain -: Sudden Onset: during rest Pain Location: substernal, left chest Severity: severe Severity scale (0 -10): 10 Quality: sharp Consistency: constant Improves With: rest Worsens With: exertion re: denies: nausea, vomting, diaphoresis, dyspnea, sense of impending doom Other Symptoms: denies: cough, fever, syncope, rash, acid taste in mouth, leg swelling, palpitations, burping Treatments Prior to Arrival: aspirin Aspirin use within the Past 7 Days: (1) Yes - Related Data On Oral Contraceptives: No Previous Rx's Medication Instructions Recorded Last Taken Type Aspirin 325 mg PO QDAY #30 tablet 01/27/14 Unknown Rx Rosuvastatin (Nf) [Crestor] 20 mg PO QHS #20 tablet 01/27/14 Unknown Rx atenoloL [Tenormin] 25 mg PO BID #60 tablet 01/27/14 Unknown Rx Clopidogrel [Plavix] 75 mg PO QDAY #30 tablet 04/07/16 Unknown Rx Albuterol Sulfate [Proair 90 mcg IH Q4HR PRN #2 aer.pow.ba 07/25/18 Unknown Rx Respiclick] Benzonatate [Tessalon Perles] 100 mg PO Q8HR PRN #30 capsule 07/25/18 Unknown Rx Fluticasone [Flonase] 1 spray NS QDAY #1 bottle 07/25/18 Unknown Rx Ibuprofen [Motrin] 400 mg PO Q8H PRN #30 tablet 07/25/18 Unknown Rx Nicotine [Nicotine Patch] 1 each TD QDAY #30 patch.td24 07/25/18 Unknown Rx Acetaminophen/Codeine [Tylenol 1 tab PO Q6H PRN #12 tab 08/24/19 Unknown Rx /Codeine # 3 tab] levoFLOXacin [Levaquin TAB] 500 mg PO QDAY #10 tablet 08/24/19 Unknown Rx Allergies Allergy/AdvReac Type Severity Reaction Status Date / Time No Known Allergies Allergy Verified 01/18/18 15:09 Heart Score - HEART Score History: Moderately suspicious EKG: Non-specific Age: 45-65 Risk factors: > 3 risk factors or hx of atherosclerotic disease Troponin: < normal limit HEART Score: 5 - EKG Read Time Time EKG Completed: 02:14 EKG Read Time: 02:15 ED Review of Systems ROS: Stated complaint: CHEST PAIN Other details as noted in HPI Constitutional: denies: chills, fever Eyes: denies: eye pain, eye discharge, vision change ENT: denies: ear pain, throat pain Respiratory: denies: cough, shortness of breath, wheezing Cardiovascular: as per HPI, chest pain. denies: palpitations Endocrine: no symptoms reported Gastrointestinal: denies: abdominal pain, nausea, diarrhea Genitourinary: denies: urgency, dysuria Musculoskeletal: denies: back pain, joint swelling, arthralgia Skin: denies: rash, lesions Neurological: denies: headache, weakness, paresthesias Psychiatric: denies: anxiety, depression Hematological/Lymphatic: denies: easy bleeding, easy bruising ED Past Medical Hx - Past Medical History Previous Medical History?: Yes Hx Hypertension: Yes Hx CVA: Yes (X 2 right sided deficits) Hx Congestive Heart Failure: No Hx Diabetes: No Hx GERD: No Hx Asthma: Yes Hx COPD: No Hx HIV: No - Surgical History Past Surgical History?: Yes Additional Surgical History: RIGHT WRIST, SHOULDER SURGERY. RIGHT KNEE SURGERY - Social History Smoking Status: Current Every Day Smoker - Medications Home Medications: Home Medications Medication Instructions Recorded Confirmed Last Taken Type Aspirin 325 mg PO QDAY #30 tablet 01/27/14 07/25/18 Unknown Rx Rosuvastatin (Nf) [Crestor] 20 mg PO QHS #20 tablet 01/27/14 07/25/18 Unknown Rx atenoloL [Tenormin] 25 mg PO BID #60 tablet 01/27/14 07/25/18 Unknown Rx Clopidogrel [Plavix] 75 mg PO QDAY #30 tablet 04/07/16 07/25/18 Unknown Rx Albuterol Sulfate [Proair 90 mcg IH Q4HR PRN #2 aer.pow.ba 07/25/18 Unknown Rx Respiclick] Benzonatate [Tessalon Perles] 100 mg PO Q8HR PRN #30 capsule 07/25/18 Unknown Rx Fluticasone [Flonase] 1 spray NS QDAY #1 bottle 07/25/18 Unknown Rx Ibuprofen [Motrin] 400 mg PO Q8H PRN #30 tablet 07/25/18 Unknown Rx Nicotine [Nicotine Patch] 1 each TD QDAY #30 patch.td24 07/25/18 Unknown Rx Acetaminophen/Codeine [Tylenol 1 tab PO Q6H PRN #12 tab 08/24/19 Unknown Rx /Codeine # 3 tab] levoFLOXacin [Levaquin TAB] 500 mg PO QDAY #10 tablet 08/24/19 Unknown Rx ED Physical Exam - General Limitations: No Limitations General appearance: alert, in no apparent distress - Head Head exam: Present: atraumatic, normocephalic - Eye Eye exam: Present: normal appearance - ENT ENT exam: Present: mucous membranes moist - Neck Neck exam: Present: normal inspection - Respiratory Respiratory exam: Present: normal lung sounds bilaterally. Absent: respiratory distress - Cardiovascular Cardiovascular Exam: Present: regular rate, normal rhythm. Absent: systolic murmur, diastolic murmur, rubs, gallop - GI/Abdominal GI/Abdominal exam: Present: soft, normal bowel sounds - Rectal Rectal exam: Present: deferred - Extremities Exam Extremities exam: Present: normal inspection - Back Exam Back exam: Present: normal inspection - Neurological Exam Neurological exam: Present: alert, oriented X3 - Psychiatric Psychiatric exam: Present: normal affect, normal mood - Skin Skin exam: Present: warm, dry, intact, normal color. Absent: rash ED Course Vital Signs 02/24/21 02/24/21 02/24/21 02:10 03:27 05:21 Temperature 97.7 F Pulse Rate 75 77 Respiratory 18 20 20 Rate Blood Pressure 140/84 Blood Pressure 136/87 [Left] O2 Sat by Pulse 97 97 97 Oximetry - Reevaluation(s) Reevaluation #1: I discussed all results with patient. I discussed plan of care with patient. Patient agrees with plan of care and admission. Patient to be admitted to the hospitalist service. 02/24/21 03:59 - Consultations Consultation #1: Hospitalist consulted for admission. Hospitalist to admit patient. 02/24/21 03:59 PHYLLIS score - Phyllis Score Age > 65: (0) No Aspirin use within the Past 7 Days: (1) Yes 3 or more CAD Risk Factors: (1) Yes 2 or more Angina events in past 24 hrs: (0) No Known CAD with more than 50% Stenosis: (0) No Elevated Cardiac Markers: (0) No ST Deviation Greater than 0.5mm: (0) No PHYLLIS Score: 2 ED Medical Decision Making - Lab Data Result diagrams: 02/24/21 03:07 02/24/21 03:07 - EKG Data -: EKG Interpreted by De EKG shows normal: axis, intervals, QRS complexes, ST-T waves Rate: normal - EKG Data Interpretation: other (Atrial flutter) - Radiology Data Radiology results: report reviewed, image reviewed XR chest 1V ap INDICATION / CLINICAL INFORMATION: cp. COMPARISON: 01/05/2019 FINDINGS: SUPPORT DEVICES: None. HEART /PULMONARY VASCULATURE: Cardiac silhouette is accentuated without significant pulmonary vasculature congestion. LUNGS / PLEURA: No significant pulmonary or pleural abnormality. No pneumothorax. ADDITIONAL FINDINGS: No significant additional findings. IMPRESSION: Cardiomegaly without overt failure or other acute chest process. - Medical Decision Making Patient is a 65-year-old male who presents emergency room with complaints of chest pain. Patient chest pain started 1 hour prior to arrival. Patient has history of CVA, diabetes, hyperlipidemia and hypertension. Patient chest pain is high risk. Patient has an elevated heart score and PHYLLIS score. Patient had labs done. Patient labs essentially unremarkable patient chest x-ray done and was negative for acute finding. Patient EKG done and it was negative for acute finding. Personally reviewed EKG and chest x-ray. Patient will require an inpatient rule out of this chest pain. Patient admitted to the hospital service for further evaluation/treatment and rule out ACS. Critical care time documented due to the multiple reassessments, prolonged time at the bedside, interpretation of diagnostics and labs. - Differential Diagnosis Chest pain, ACS, Critical Care Time: Yes Critical care time in (mins) excluding proc time.: 35 Critical care attestation.: If time is entered above; I have spent that time in minutes in the direct care of this critically ill patient, excluding procedure time. Critical Care Time: 35 minutes ED Disposition Clinical Impression: Dyslipidemia, History of CVA (cerebrovascular accident) Chest pain Qualifiers: Chest pain type: unspecified Qualified Code(s): R07.9 - Chest pain, unspecified Disposition: DC-09 OP ADMIT IP TO THIS HOSP Is pt being admited?: Yes Does the pt Need Aspirin: No Condition: Critical Time of Disposition: 04:02
--- NOTE | 2021-02-24 02:57 | XRay Report ---
XR chest 1V ap INDICATION / CLINICAL INFORMATION: cp. COMPARISON: 01/05/2019 FINDINGS: SUPPORT DEVICES: None. HEART /PULMONARY VASCULATURE: Cardiac silhouette is accentuated without significant pulmonary vascula ture congestion. LUNGS / PLEURA: No significant pulmonary or pleural abnormality. No pneumothorax. ADDITIONAL FINDINGS: No significant additional findings. IMPRESSION: Cardiomegaly without overt failure or other acute chest process. Signer Name: Tony Goff MD Signed: 02/24/2021 2:53 AM Workstation Name: [id number]
[2021-02-24 03:32] LABS: Basophils % (Auto) 0.5 % (0.0-1.8); Eosinophils # (Auto) 0.1 K/mm3 (0.0-0.4); Eosinophils % (Auto) 1.5 % (0.0-4.3); Hematocrit 43.9 % (35.5-45.6); Hemoglobin 14.7 gm/dl (11.8-15.2); Lymphocytes # (Auto) 2.3 K/mm3 (1.2-5.4); Lymphocytes % (Auto) 22.9 % (13.4-35.0); Mean Corpuscular HGB Conc 34 % (32-34); Mean Corpuscular Volume 86 fl (84-94); Monocytes # (Auto) 0.7 K/mm3 (0.0-0.8); Monocytes % (Auto) 6.8 % (0.0-7.3); Platelet Count 177 K/mm3 (140-440); Red Blood Count 5.11 M/mm3 (3.65-5.03); Red Cell Distribution Width 14.5 % (13.2-15.2)
[2021-02-24 03:51] LABS: Alanine Aminotransferase 14 units/L (7-56); Albumin 4.4 g/dL (3.9-5); BUN/Creatinine Ratio 13; Blood Urea Nitrogen 10 mg/dL (9-20); Calcium 9.4 mg/dL (8.4-10.2); Hemolysis Index 6
[2021-02-24] MEDS ORDERED: ACETAMINOPHEN 325 MG TAB PO PRN ×2 (05:14)
[2021-02-24] MEDS ORDERED: ALUM-MAG HYDROXIDE-SIMETHICONE 200-200-20MG/5ML ORAL LIQD 30 ML PO PRN (05:14)
[2021-02-24] MEDS ORDERED: SENNOSIDES 8.6 MG TAB PO PRN (05:14)
[2021-02-24] MEDS ORDERED: METOCLOPRAMIDE 10 MG/2 ML INJ IV PRN (05:14)
[2021-02-24] MEDS ORDERED: MAGNESIUM HYDROXIDE (MOM) ORAL LIQD UDC PO PRN (05:14)
[2021-02-24] MEDS ORDERED: traMADol 50 MG TAB PO PRN (05:14)
[2021-02-24] MEDS ORDERED: ONDANSETRON 4 MG/2 ML INJ IV PRN (05:14)
[2021-02-24] MEDS ORDERED: ALBUTEROL 2.5 MG/3 ML NEBU IH PRN (05:14)
--- NOTE | 2021-02-24 05:26 | History and Physical Report ---
History of Present Illness Date of examination: 02/24/21 Date of admission: 02/24/21 04:02 Chief complaint: chest pain History of present illness: Patient is a 65-year-old male presents emergency room with complaints of pain. Patient's chest pain started 1 hour ago. Patient states chest pain is constant. Patient states he had to call EMS. Patient states he left prior to hospital. Patient states the EMS gave him aspirin in route. Patient denies shortness of breath. Patient denies acid reflux. Patient denies blood pain. Patient denies history of [place]. Patient states he has history of right CVA, diabetes, hypertension and hyperlipidemia. Patient states he is compliant with his medication. ED work-up shows WBC 9.9, hemoglobin 14.7, platelets 177, sodium 139, potassium 3.7, creatinine 0.8, and glucose serum 145, calcium 9.4, troponin negative. CT of the chest done cardiomegaly without overt failure or acute chest process. Patient seen at bedside in the ED patient alert oriented x3. Patient has some right-sided weakness secondary to CVA 7 years ago. Patient reported that he is chest pain is resolving at the time of assessment. Patient admits tobacco use and marijuana use. Discussed tobacco use and illicit drug use. Cardiovascular neoplasm syndrome of tobacco use explained to the patient. Patient voiced understanding. 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) Social history: lives with family, smoking Family history: hypertension Medications and Allergies Allergies Allergy/AdvReac Type Severity Reaction Status Date / Time No Known Allergies Allergy Verified 01/18/18 15:09 Home Medications Medication Instructions Recorded Confirmed Last Taken Type Aspirin 325 mg PO QDAY #30 tablet 01/27/14 07/25/18 Unknown Rx Rosuvastatin (Nf) [Crestor] 20 mg PO QHS #20 tablet 01/27/14 07/25/18 Unknown Rx atenoloL [Tenormin] 25 mg PO BID #60 tablet 01/27/14 07/25/18 Unknown Rx Clopidogrel [Plavix] 75 mg PO QDAY #30 tablet 04/07/16 07/25/18 Unknown Rx Albuterol Sulfate [Proair 90 mcg IH Q4HR PRN #2 aer.pow.ba 07/25/18 Unknown Rx Respiclick] Benzonatate [Tessalon Perles] 100 mg PO Q8HR PRN #30 capsule 07/25/18 Unknown Rx Fluticasone [Flonase] 1 spray NS QDAY #1 bottle 07/25/18 Unknown Rx Ibuprofen [Motrin] 400 mg PO Q8H PRN #30 tablet 07/25/18 Unknown Rx Nicotine [Nicotine Patch] 1 each TD QDAY #30 patch.td24 07/25/18 Unknown Rx Acetaminophen/Codeine [Tylenol 1 tab PO Q6H PRN #12 tab 08/24/19 Unknown Rx /Codeine # 3 tab] levoFLOXacin [Levaquin TAB] 500 mg PO QDAY #10 tablet 08/24/19 Unknown Rx Active Meds: Active Medications Acetaminophen (Acetaminophen 325 Mg Tab) 650 mg PO Q4H PRN PRN Reason: Pain MILD(1-3)/Fever >100.5/TOTH Acetaminophen (Acetaminophen 325 Mg Tab) 650 mg PO Q6H PRN PRN Reason: Pain, Mild (1-3) Al Hydrox/Mg Hydrox/Simethicone (Alum-Mag Hydroxide-Simethicone [phone]/5ml Oral Liqd 30 Ml) 30 ml PO Q4H PRN PRN Reason: Indigestion Albuterol (Albuterol 2.5 Mg/3 Ml Nebu) 2.5 mg IH Q4HRT PRN PRN Reason: Shortness Of Breath Aspirin (Aspirin Ec 81 Mg Tab) 81 mg PO QDAY BRIELLE Atorvastatin Calcium (Atorvastatin 40 Mg Tab) 40 mg PO QHS BRIELLE Famotidine (Famotidine 20 Mg/2 Ml Inj) 20 mg IV BID BRIELLE Magnesium Hydroxide (Magnesium Hydroxide (Mom) Oral Liqd Udc) 30 ml PO Q4H PRN PRN Reason: Constipation Metoclopramide HCl (Metoclopramide 10 Mg/2 Ml Inj) 10 mg IV Q6H PRN PRN Reason: Nausea And Vomiting Ondansetron HCl (Ondansetron 4 Mg/2 Ml Inj) 4 mg IV Q8H PRN PRN Reason: Nausea And Vomiting Senna (Sennosides 8.6 Mg Tab) 8.6 mg PO Q12HR PRN PRN Reason: Constipation Sodium Chloride (Sodium Chloride 0.9% 10 Ml Flush Syringe) 10 ml IV BID BRIELLE Sodium Chloride (Sodium Chloride 0.9% 10 Ml Flush Syringe) 10 ml IV PRN PRN PRN Reason: LINE FLUSH Sodium Chloride (Sodium Chloride 0.9% 10 Ml Flush Syringe) 10 ml IV PRN PRN PRN Reason: LINE FLUSH Tramadol HCl (Tramadol 50 Mg Tab) 50 mg PO Q6H PRN PRN Reason: Pain, Moderate (4-6) Review of Systems Constitutional: weakness (righted weakness due to CVA 7 years ago) Ears, nose, mouth and throat: no epistaxis, no bleeding gums Cardiovascular: chest pain, high blood pressure Gastrointestinal: no melena Rectal: no itching, no hemorrhoids Integumentary: no rash, no pruritis Psychiatric: no suicidal ideation, no disorientation, no hallucinations Hematologic/Lymphatic: no easy bruising, no easy bleeding Allergic/Immunologic: no urticaria Exam - Constitutional Vitals: Temp Pulse Resp BP Pulse Ox 97.7 F 75 20 140/84 97 02/24/21 02:10 02/24/21 02:10 02/24/21 03:27 02/24/21 02:10 02/24/21 03:27 General appearance: Present: mild distress, well-nourished - EENT Eyes: Present: PERRL ENT: hearing intact, clear oral mucosa - Neck Neck: Present: supple, normal ROM - Respiratory Respiratory effort: normal Respiratory: bilateral: CTA - Cardiovascular Heart rate: 77 Heart Sounds: Present: S1 & S2. Absent: rub, click - Extremities Extremities: pulses symmetrical, No edema Peripheral Pulses: within normal limits - Abdominal General gastrointestinal: Present: soft, non-tender, non-distended, normal bowel sounds Male genitourinary: Present: normal - Integumentary Integumentary: Present: clear, warm, dry - Musculoskeletal Musculoskeletal: gait normal, strength equal bilaterally - Psychiatric Psychiatric: appropriate mood/affect, intact judgment & insight, cooperative - Neurologic Neurologic: CNII-XII intact, moves all extremities - Allied Health Allied health notes reviewed: nursing HEART Score - HEART Score EKG: Non-specific Age: 45-65 Risk factors: > 3 risk factors or hx of atherosclerotic disease Troponin: Troponin T < 0.010 ng/mL (0.00-0.029) 02/24/21 03:07 Troponin: < normal limit Results - Labs CBC & Chem 7: 02/24/21 06:05 02/24/21 03:07 Labs: Abnormal lab results 02/24/21 02/24/21 Range/Units 03:07 03:07 RBC 5.11 H (3.65-5.03) M/mm3 Glucose 145 H (75-100) mg/dL Assessment and Plan - Patient Problems (1) Chest pain Current Visit: Yes Status: Acute Qualifiers: Chest pain type: unspecified Qualified Code(s): R07.9 - Chest pain, unspecified Plan to address problem: Continue cadio-protective measures-ASA, statin and plavix Quality Head consult ECHO-f/u with result (2) History of CVA (cerebrovascular accident) Current Visit: Yes Status: Acute Plan to address problem: Patient has a history of CVA Continue antiplatelet and statin PT OT consult (3) HTN (hypertension) Current Visit: No Status: Chronic Plan to address problem: Monitor blood pressure Resume home antihypertensive PRN hydralazine (4) Tobacco abuse Current Visit: No Status: Chronic Plan to address problem: discussed tobacco use cessation (5) DVT prophylaxis Current Visit: No Status: Acute Plan to address problem: lovenox
[2021-02-24 06:33] LABS: Basophils % (Auto) 0.4 % (0.0-1.8); Eosinophils # (Auto) 0.1 K/mm3 (0.0-0.4); Eosinophils % (Auto) 0.7 % (0.0-4.3); Hematocrit 43.5 % (35.5-45.6); Hemoglobin 14.7 gm/dl (11.8-15.2); Lymphocytes # (Auto) 2.4 K/mm3 (1.2-5.4); Lymphocytes % (Auto) 26.3 % (13.4-35.0); Mean Corpuscular HGB Conc 34 % (32-34); Mean Corpuscular Volume 87 fl (84-94); Monocytes # (Auto) 0.5 K/mm3 (0.0-0.8); Monocytes % (Auto) 5.8 % (0.0-7.3); Platelet Count 184 K/mm3 (140-440); Red Blood Count 4.98 M/mm3 (3.65-5.03)
[2021-02-24 06:38] LABS: BUN/Creatinine Ratio 12; Blood Urea Nitrogen 11 mg/dL (9-20); Calcium 8.9 mg/dL (8.4-10.2); Hemolysis Index 4
[2021-02-24] MEDS ORDERED: BENZONATATE 100 MG CAP PO PRN (06:53)
[2021-02-24] MEDS ORDERED: NON-FORMULARY EACH (Albuterol Sulfate [Proair Respiclick] 90 MCG Aer.Pow.Ba) IH PRN (08:40)
--- NOTE | 2021-02-24 08:41 | Progress Note ---
Assessment and Plan Assessment and plan: Chest pain History of CVA Hypertension Tobacco abuse 02/24/2021. Continue aspirin, Plavix and statin. Cardiology consultation pending. Follow-up echocardiogram. History Interval history: No new issues overnight Hospitalist Physical - Constitutional Vitals: Temp Pulse Resp BP Pulse Ox 98.2 F 74 18 112/68 97 02/24/21 06:07 02/24/21 06:07 02/24/21 06:07 02/24/21 06:07 02/24/21 06:07 General appearance: Present: mild distress, well-nourished - EENT Eyes: Present: PERRL, EOM intact ENT: hearing intact, clear oral mucosa, dentition normal - Neck Neck: Present: supple, normal ROM - Respiratory Respiratory effort: normal Respiratory: bilateral: CTA - Cardiovascular Rhythm: regular Heart Sounds: Present: S1 & S2. Absent: gallop, rub - Extremities Extremities: no ischemia, No edema, Full ROM - Abdominal General gastrointestinal: soft, non-tender, non-distended, normal bowel sounds - Integumentary Integumentary: Present: clear, warm, dry - Neurologic Neurologic: CNII-XII intact, moves all extremities HEART Score - HEART Score EKG: Non-specific Age: 45-65 Risk factors: > 3 risk factors or hx of atherosclerotic disease Troponin: Troponin T 0.023 ng/mL (0.00-0.029) 02/24/21 06:05 Troponin: < normal limit Results - Labs CBC & Chem 7: 02/24/21 06:05 02/24/21 06:05 Labs: Laboratory Last Values WBC 9.3 K/mm3 (4.5-11.0) 02/24/21 06:05 RBC 4.98 M/mm3 (3.65-5.03) 02/24/21 06:05 Hgb 14.7 gm/dl (11.8-15.2) 02/24/21 06:05 Hct 43.5 % (35.5-45.6) 02/24/21 06:05 MCV 87 fl (84-94) 02/24/21 06:05 MCH 30 pg (28-32) 02/24/21 06:05 MCHC 34 % (32-34) 02/24/21 06:05 RDW 15.0 % (13.2-15.2) 02/24/21 06:05 Plt Count 184 K/mm3 (140-440) 02/24/21 06:05 Lymph % (Auto) 26.3 % (13.4-35.0) 02/24/21 06:05 Vance % (Auto) 5.8 % (0.0-7.3) 02/24/21 06:05 Eos % (Auto) 0.7 % (0.0-4.3) 02/24/21 06:05 Baso % (Auto) 0.4 % (0.0-1.8) 02/24/21 06:05 Lymph # (Auto) 2.4 K/mm3 (1.2-5.4) 02/24/21 06:05 Vance # (Auto) 0.5 K/mm3 (0.0-0.8) 02/24/21 06:05 Eos # (Auto) 0.1 K/mm3 (0.0-0.4) 02/24/21 06:05 Baso # (Auto) 0.0 K/mm3 (0.0-0.1) 02/24/21 06:05 Seg Neutrophils % 66.8 % (40.0-70.0) 02/24/21 06:05 Seg Neutrophils # 6.2 K/mm3 (1.8-7.7) 02/24/21 06:05 Sodium 136 mmol/L (137-145) L 02/24/21 06:05 Potassium 4.2 mmol/L (3.6-5.0) 02/24/21 06:05 Chloride 102.4 mmol/L (98-107) 02/24/21 06:05 Carbon Dioxide 23 mmol/L (22-30) 02/24/21 06:05 Anion Gap 15 mmol/L 02/24/21 06:05 BUN 11 mg/dL (9-20) 02/24/21 06:05 Creatinine 0.9 mg/dL (0.8-1.3) 02/24/21 06:05 Estimated GFR > 60 ml/min 02/24/21 06:05 BUN/Creatinine Ratio 12 % 02/24/21 06:05 Glucose 154 mg/dL (75-100) H 02/24/21 06:05 Calcium 8.9 mg/dL (8.4-10.2) 02/24/21 06:05 Total Bilirubin 0.30 mg/dL (0.1-1.2) 02/24/21 03:07 AST 14 units/L (5-40) 02/24/21 03:07 ALT 14 units/L (7-56) 02/24/21 03:07 Alkaline Phosphatase 88 units/L (35-129) 02/24/21 03:07 Troponin T 0.023 ng/mL (0.00-0.029) 02/24/21 06:05 Total Protein 8.1 g/dL (6.3-8.2) 02/24/21 03:07 Albumin 4.4 g/dL (3.9-5) 02/24/21 03:07 Albumin/Globulin Ratio 1.2 % 02/24/21 03:07 Ortiz/IV: Voiding Method Toilet Active Medications - Current Medications Current Medications: Generic Name Dose Route Start Last Admin Trade Name Freq PRN Reason Stop Dose Admin Acetaminophen 650 mg 02/24/21 05:14 Acetaminophen 325 Mg Tab PO Q4H PRN Pain MILD(1-3)/Fever >100.5/TOTH Al Hydrox/Mg Hydrox/Simethicone 30 ml 02/24/21 05:14 Alum-Mag Hydroxide-Simethicone [phone]/5ml Oral Liqd 30 Ml PO Q4H PRN Indigestion Albuterol 2.5 mg 02/24/21 05:14 Albuterol 2.5 Mg/3 Ml Nebu IH Q4HRT PRN Shortness Of Breath Aspirin 81 mg 02/24/21 10:00 Aspirin Ec 81 Mg Tab PO QDAY [facility] Atenolol 25 mg 02/24/21 10:00 Atenolol 25 Mg Tab PO BID [facility] Atorvastatin Calcium 40 mg 02/24/21 22:00 Atorvastatin 40 Mg Tab PO QHS [facility] Benzonatate 100 mg 02/24/21 06:53 Benzonatate 100 Mg Cap PO Q8H PRN Cough Clopidogrel Bisulfate 75 mg 02/24/21 10:00 Clopidogrel 75 Mg Tab PO QDAY [facility] Enoxaparin Sodium 40 mg 02/24/21 10:00 Enoxaparin 40 Mg/0.4 Ml Inj SUB-Q DAILY [facility] Protocol Famotidine 20 mg 02/24/21 10:00 Famotidine 20 Mg/2 Ml Inj IV BID [facility] Magnesium Hydroxide 30 ml 02/24/21 05:14 Magnesium Hydroxide (Mom) Oral Liqd Udc PO Q4H PRN Constipation Metoclopramide HCl 10 mg 02/24/21 05:14 Metoclopramide 10 Mg/2 Ml Inj IV Q6H PRN Nausea And Vomiting Nicotine 21 mg 02/24/21 10:00 Nicotine 21 Mg/24 Hr Patch TD QDAY [facility] Ondansetron HCl 4 mg 02/24/21 05:14 Ondansetron 4 Mg/2 Ml Inj IV Q8H PRN Nausea And Vomiting Senna 8.6 mg 02/24/21 05:14 Sennosides 8.6 Mg Tab PO Q12HR PRN Constipation Sodium Chloride 10 ml 02/24/21 10:00 Sodium Chloride 0.9% 10 Ml Flush Syringe IV BID [facility] Sodium Chloride 10 ml 02/24/21 05:14 Sodium Chloride 0.9% 10 Ml Flush Syringe IV PRN PRN LINE FLUSH Tramadol HCl 50 mg 02/24/21 05:14 Tramadol 50 Mg Tab PO Q6H PRN Pain, Moderate (4-6)
--- NOTE | 2021-02-24 09:10 | Consultation ---
History of Present Illness Consult date: 02/24/21 Requesting physician: NORMA BAILON Consult reason: chest pain History of present illness: This patient is a 65-year-old male with a significant history of CVA with lingering right-sided deficits, diabetes, hypertension, hyperlipidemia. He is previously been followed by Dr. Juliano Martinez with our office though is not a current patient. Patient presents to [facility] ER via EMS with complaint of chest pain x1 hour. He received aspirin in route and reported chest pain was resolving upon arrival to hospital. Cardiology is consulted for chest pain. At time of interview patient is chest pain-free. He denies weakness, dizziness, shortness of breath, abdominal pain, N/V/D, recent illness or known exposures. Patient admits regular tobacco and marijuana use. No alcohol or other illicit drugs. 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) Social history: lives with family, smoking Family history: hypertension Medications and Allergies Allergies Allergy/AdvReac Type Severity Reaction Status Date / Time No Known Allergies Allergy Verified 02/24/21 06:44 Home Medications Medication Instructions Recorded Confirmed Last Taken Type Aspirin 325 mg PO QDAY #30 tablet 01/27/14 07/25/18 Unknown Rx Rosuvastatin (Nf) [Crestor] 20 mg PO QHS #20 tablet 01/27/14 07/25/18 Unknown Rx atenoloL [Tenormin] 25 mg PO BID #60 tablet 01/27/14 07/25/18 Unknown Rx Clopidogrel [Plavix] 75 mg PO QDAY #30 tablet 04/07/16 07/25/18 Unknown Rx Albuterol Sulfate [Proair 90 mcg IH Q4HR PRN #2 aer.pow.ba 07/25/18 Unknown Rx Respiclick] Benzonatate [Tessalon Perles] 100 mg PO Q8HR PRN #30 capsule 07/25/18 Unknown Rx Fluticasone [Flonase] 1 spray NS QDAY #1 bottle 07/25/18 Unknown Rx Ibuprofen [Motrin] 400 mg PO Q8H PRN #30 tablet 07/25/18 Unknown Rx Nicotine [Nicotine Patch] 1 each TD QDAY #30 patch.td24 07/25/18 Unknown Rx Acetaminophen/Codeine [Tylenol 1 tab PO Q6H PRN #12 tab 08/24/19 Unknown Rx /Codeine # 3 tab] levoFLOXacin [Levaquin TAB] 500 mg PO QDAY #10 tablet 08/24/19 Unknown Rx Active Meds: Active Medications Acetaminophen (Acetaminophen 325 Mg Tab) 650 mg PO Q4H PRN PRN Reason: Pain MILD(1-3)/Fever >100.5/TOTH Al Hydrox/Mg Hydrox/Simethicone (Alum-Mag Hydroxide-Simethicone [phone]/5ml Oral Liqd 30 Ml) 30 ml PO Q4H PRN PRN Reason: Indigestion Albuterol (Albuterol 2.5 Mg/3 Ml Nebu) 2.5 mg IH Q4HRT PRN PRN Reason: Shortness Of Breath Aspirin (Aspirin Ec 81 Mg Tab) 81 mg PO QDAY BRIELLE Aspirin (Aspirin 325 Mg Tab) 325 mg PO QDAY BRIELLE Atenolol (Atenolol 25 Mg Tab) 25 mg PO BID BRIELLE Atorvastatin Calcium (Atorvastatin 40 Mg Tab) 40 mg PO QHS BRIELLE Benzonatate (Benzonatate 100 Mg Cap) 100 mg PO Q8H PRN PRN Reason: Cough Clopidogrel Bisulfate (Clopidogrel 75 Mg Tab) 75 mg PO QDAY BRIELLE Clopidogrel Bisulfate (Clopidogrel 75 Mg Tab) 75 mg PO QDAY BRIELLE Enoxaparin Sodium (Enoxaparin 40 Mg/0.4 Ml Inj) 40 mg SUB-Q DAILY BRIELLE; Protocol Famotidine (Famotidine 20 Mg/2 Ml Inj) 20 mg IV BID BRIELLE Fluticasone Propionate (Fluticasone Propionate Nasal Bend 16 Gm) 50 mcg NS QDAY BRIELLE Magnesium Hydroxide (Magnesium Hydroxide (Mom) Oral Liqd Udc) 30 ml PO Q4H PRN PRN Reason: Constipation Metoclopramide HCl (Metoclopramide 10 Mg/2 Ml Inj) 10 mg IV Q6H PRN PRN Reason: Nausea And Vomiting Miscellaneous Medication (Albuterol Sulfate [Proair Respiclick]) 90 mcg IH Q4HR PRN PRN Reason: Wheezing Nicotine (Nicotine 21 Mg/24 Hr Patch) 21 mg TD QDAY BRIELLE Ondansetron HCl (Ondansetron 4 Mg/2 Ml Inj) 4 mg IV Q8H PRN PRN Reason: Nausea And Vomiting Senna (Sennosides 8.6 Mg Tab) 8.6 mg PO Q12HR PRN PRN Reason: Constipation Sodium Chloride (Sodium Chloride 0.9% 10 Ml Flush Syringe) 10 ml IV BID BRIELLE Sodium Chloride (Sodium Chloride 0.9% 10 Ml Flush Syringe) 10 ml IV PRN PRN PRN Reason: LINE FLUSH Tramadol HCl (Tramadol 50 Mg Tab) 50 mg PO Q6H PRN PRN Reason: Pain, Moderate (4-6) Review of Systems Constitutional: no weight loss, no weight gain, no fever, no chills, no sweats, no night sweats Ears, nose, mouth and throat: no ear pain, no ear discharge, no nose pain, no nasal congestion, no nasal discharge Cardiovascular: chest pain, no orthopnea, no palpitations, no rapid/irregular heart beat, no edema, no syncope, no lightheadedness, no shortness of breath Respiratory: no cough, no shortness of breath, no dyspnea on exertion Gastrointestinal: no abdominal pain, no nausea, no vomiting, no diarrhea Genitourinary Male: no flank pain Musculoskeletal: no neck stiffness, no neck pain, no shooting arm pain, no arm numbness/tingling, no low back pain Integumentary: no rash, no pruritis, no redness, no sores, no wounds Neurological: no head injury, no paralysis, no weakness, no parathesias, no numbness, no tingling, no seizures, no syncope Psychiatric: no anxiety Endocrine: no cold intolerance, no heat intolerance Hematologic/Lymphatic: no easy bruising, no easy bleeding Allergic/Immunologic: no urticaria Physical Examination Last Vital Signs Temp 98.2 F 02/24/21 06:07 Pulse 74 02/24/21 06:07 Resp 18 02/24/21 06:07 BP 112/68 02/24/21 06:07 Pulse Ox 97 02/24/21 06:07 General appearance: no acute distress HEENT: Positive: PERRL, Normocephaly, Mucus Membranes Moist Neck: Positive: neck supple, trachea midline Cardiac: Positive: Reg Rate and Rhythm, S1/S2 Lungs: Positive: Normal Exam, Normal Breath Sounds Neuro: Positive: Other (Right-sided deficit secondary to stroke history) Abdomen: Positive: Unremarkable, Soft Skin: Negative: Rash, Wound Musculoskeletal: No Pain Extremities: Present: upper extr. pulses, lower extr. pulses. Absent: edema Results 02/24/21 06:05 02/24/21 06:05 Cardiac Enzymes 02/24/21 Range/Units 03:07 AST 14 (5-40) units/L CBC 02/24/21 02/24/21 Range/Units 03:07 06:05 WBC 9.9 9.3 (4.5-11.0) K/mm3 RBC 5.11 H 4.98 (3.65-5.03) M/mm3 Hgb 14.7 14.7 (11.8-15.2) gm/dl Hct 43.9 43.5 (35.5-45.6) % Plt Count 177 184 (140-440) K/mm3 Lymph # (Auto) 2.3 2.4 (1.2-5.4) K/mm3 [place] # (Auto) 0.7 0.5 (0.0-0.8) K/mm3 Eos # (Auto) 0.1 0.1 (0.0-0.4) K/mm3 Baso # (Auto) 0.0 0.0 (0.0-0.1) K/mm3 Comprehensive Metabolic Panel 02/24/21 02/24/21 Range/Units 03:07 06:05 Sodium 139 136 L (137-145) mmol/L Potassium 3.7 4.2 (3.6-5.0) mmol/L Chloride 101.4 102.4 (98-107) mmol/L Carbon Dioxide 26 23 (22-30) mmol/L BUN 10 11 (9-20) mg/dL Creatinine 0.8 0.9 (0.8-1.3) mg/dL Glucose 145 H 154 H (75-100) mg/dL Calcium 9.4 8.9 (8.4-10.2) mg/dL AST 14 (5-40) units/L ALT 14 (7-56) units/L Alkaline Phosphatase 88 (35-129) units/L Total Protein 8.1 (6.3-8.2) g/dL Albumin 4.4 (3.9-5) g/dL - Imaging and Cardiology Echo: pending EKG: report reviewed, image reviewed EKG interpretations - Telemetry EKG Rhythm: Sinus Rhythm - EKG Sinus rhythms and dysrhythmias: sinus rhythm Assessment and Plan Chest pain * Patient is currently chest pain-free without cardiac complaint. Twelve-lead reviewed shows sinus rhythm with no acute ischemic changes. Troponin is mildly elevated subacute nonspecific but trending upwards. We will continue to trend CE's * Echocardiogram is pending * We will plan for ischemic eval on Friday. Hypertension * Optimize antihypertensive regimen/resume home medication: Discontinue atenolol, initiate carvedilol 25 mg twice daily, amlodipine 10 mg daily. Continue aspirin 325 pending additional troponin. Continue atorvastatin 40 pending lipid panel. Tobacco, illicit drug use * Cessation encouraged Lexiscan MPI stress test scheduled for Friday, n.p.o. after midnight Friday night. Will follow This patient seen in conjunction with Dr Covarrubias who agrees with this assessment plan of care - Patient Problems (1) Diabetes mellitus Current Visit: Yes Status: Chronic (2) Chest pain Current Visit: Yes Status: Acute Qualifiers: Chest pain type: unspecified Qualified Code(s): R07.9 - Chest pain, unspecified (3) History of CVA (cerebrovascular accident) Current Visit: Yes Status: Chronic (4) Dyslipidemia Current Visit: Yes Status: Chronic (5) DVT prophylaxis Current Visit: Yes Status: Acute (6) HTN (hypertension) Current Visit: Yes Status: Chronic (7) Polysubstance abuse Current Visit: Yes Status: Chronic (8) Tobacco abuse Current Visit: Yes Status: Chronic
[2021-02-24 09:49] LABS: Chol/HDL Ratio 2.95 %
[2021-02-24] MEDS ORDERED: ASPIRIN EC 81 MG TAB PO SCH (10:00)
[2021-02-24] MEDS ORDERED: atenoloL 25 MG TAB PO SCH ×2 (10:00)
[2021-02-24] MEDS ORDERED: CLOPIDOGREL 75 MG TAB PO SCH (10:00)
[2021-02-24] MEDS: ENOXAPARIN 40 MG/0.4 ML INJ SUB-Q SCH (10:44)
[2021-02-24] MEDS: ASPIRIN 325 MG TAB PO SCH (10:45)
[2021-02-24] MEDS: carvediloL 25 MG TAB PO SCH ×2 (10:46→21:22)
[2021-02-24] MEDS: NICOTINE 21 MG/24 HR PATCH TD SCH (10:46)
[2021-02-24] MEDS: CLOPIDOGREL 75 MG TAB PO SCH (10:46)
[2021-02-24] MEDS: FAMOTIDINE 20 MG/2 ML INJ IV SCH ×2 (10:47→21:22)
[2021-02-24] MEDS: amLODIPine 10 MG TAB PO SCH (12:02)
[2021-02-24] MEDS: FLUTICASONE PROPIONATE NASAL SPRAY 16 GM NS SCH (12:59)
[2021-02-25 06:06] LABS: Hemoglobin 13.8 gm/dl (11.8-15.2); Red Blood Count 4.72 M/mm3 (3.65-5.03)
[2021-02-25 06:07] LABS: Basophils % (Auto) 0.4 % (0.0-1.8); Eosinophils # (Auto) 0.2 K/mm3 (0.0-0.4); Eosinophils % (Auto) 2.5 % (0.0-4.3); Lymphocytes # (Auto) 3.7 K/mm3 (1.2-5.4); Lymphocytes % (Auto) 46.5 % (13.4-35.0); Mean Corpuscular HGB Conc 34 % (32-34); Mean Corpuscular Volume 87 fl (84-94); Monocytes # (Auto) 0.6 K/mm3 (0.0-0.8); Monocytes % (Auto) 8.2 % (0.0-7.3); Platelet Count 173 K/mm3 (140-440); Red Cell Distribution Width 14.7 % (13.2-15.2)
[2021-02-25 07:57] LABS: Alanine Aminotransferase 15 units/L (7-56); Albumin 4.1 g/dL (3.9-5); Blood Urea Nitrogen 12 mg/dL (9-20); Calcium 9.1 mg/dL (8.4-10.2); Hemolysis Index 11
[2021-02-25 07:59] LABS: BUN/Creatinine Ratio 17
[2021-02-25] MEDS: CLOPIDOGREL 75 MG TAB PO SCH (09:10)
[2021-02-25] MEDS: ASPIRIN 325 MG TAB PO SCH (09:10)
[2021-02-25] MEDS: carvediloL 25 MG TAB PO SCH ×2 (09:10→21:42)
[2021-02-25] MEDS: ENOXAPARIN 40 MG/0.4 ML INJ SUB-Q SCH (09:11)
[2021-02-25] MEDS: FLUTICASONE PROPIONATE NASAL SPRAY 16 GM NS SCH (09:12)
[2021-02-25] MEDS: NICOTINE 21 MG/24 HR PATCH TD SCH (09:12)
[2021-02-25] MEDS: FAMOTIDINE 20 MG/2 ML INJ IV SCH ×2 (09:12→21:43)
--- NOTE | 2021-02-25 10:12 | Progress Note ---
Assessment and Plan Assessment and plan: Chest pain History of CVA Hypertension Tobacco abuse 02/24/2021. Continue aspirin, Plavix and statin. Cardiology consultation pending. Follow-up echocardiogram. 02/25/2021. Echocardiogram revealed left ventricular size normal with systolic function normal as well. LVEF is 55 to 60%. Patient likely has impaired LV relaxation. Cardiology plans for stress test evaluation in a.m. History Interval history: No new issues overnight Hospitalist Physical - Constitutional Vitals: Temp Pulse Resp BP Pulse Ox 97.6 F 67 18 129/81 95 02/25/21 08:06 02/25/21 08:06 02/25/21 08:06 02/25/21 08:06 02/25/21 08:06 General appearance: Present: no acute distress - EENT Eyes: Present: PERRL, EOM intact ENT: hearing intact, clear oral mucosa, dentition normal - Neck Neck: Present: supple, normal ROM - Respiratory Respiratory effort: normal Respiratory: bilateral: CTA - Cardiovascular Rhythm: regular Heart Sounds: Present: S1 & S2. Absent: gallop, rub - Extremities Extremities: no ischemia, No edema, Full ROM - Abdominal General gastrointestinal: soft, non-tender, non-distended, normal bowel sounds - Integumentary Integumentary: Present: clear, warm, dry - Neurologic Neurologic: CNII-XII intact, moves all extremities HEART Score - HEART Score EKG: Non-specific Age: 45-65 Risk factors: > 3 risk factors or hx of atherosclerotic disease Troponin: Troponin T 0.301 ng/mL (0.00-0.029) H* D 02/25/21 05:15 Troponin: < normal limit Results - Labs CBC & Chem 7: 02/25/21 05:15 02/25/21 05:15 Labs: Laboratory Last Values WBC 8.0 K/mm3 (4.5-11.0) 02/25/21 05:15 RBC 4.72 M/mm3 (3.65-5.03) 02/25/21 05:15 Hgb 13.8 gm/dl (11.8-15.2) 02/25/21 05:15 Hct 41.0 % (35.5-45.6) 02/25/21 05:15 MCV 87 fl (84-94) 02/25/21 05:15 MCH 29 pg (28-32) 02/25/21 05:15 MCHC 34 % (32-34) 02/25/21 05:15 RDW 14.7 % (13.2-15.2) 02/25/21 05:15 Plt Count 173 K/mm3 (140-440) 02/25/21 05:15 Lymph % (Auto) 46.5 % (13.4-35.0) H 02/25/21 05:15 [place] % (Auto) 8.2 % (0.0-7.3) H 02/25/21 05:15 Eos % (Auto) 2.5 % (0.0-4.3) 02/25/21 05:15 Baso % (Auto) 0.4 % (0.0-1.8) 02/25/21 05:15 Lymph # (Auto) 3.7 K/mm3 (1.2-5.4) 02/25/21 05:15 [place] # (Auto) 0.6 K/mm3 (0.0-0.8) 02/25/21 05:15 Eos # (Auto) 0.2 K/mm3 (0.0-0.4) 02/25/21 05:15 Baso # (Auto) 0.0 K/mm3 (0.0-0.1) 02/25/21 05:15 Seg Neutrophils % 42.4 % (40.0-70.0) 02/25/21 05:15 Seg Neutrophils # 3.4 K/mm3 (1.8-7.7) 02/25/21 05:15 Sodium 138 mmol/L (137-145) 02/25/21 05:15 Potassium 3.6 mmol/L (3.6-5.0) 02/25/21 05:15 Chloride 104.0 mmol/L (98-107) 02/25/21 05:15 Carbon Dioxide 23 mmol/L (22-30) 02/25/21 05:15 Anion Gap 15 mmol/L 02/25/21 05:15 BUN 12 mg/dL (9-20) 02/25/21 05:15 Creatinine 0.7 mg/dL (0.8-1.3) L 02/25/21 05:15 Estimated GFR > 60 ml/min 02/25/21 05:15 BUN/Creatinine Ratio 17 % 02/25/21 05:15 Glucose 141 mg/dL (75-100) H 02/25/21 05:15 Hemoglobin A1c 7.7 % (4-6) H 02/24/21 06:05 Calcium 9.1 mg/dL (8.4-10.2) 02/25/21 05:15 Total Bilirubin 0.30 mg/dL (0.1-1.2) 02/25/21 05:15 AST 27 units/L (5-40) 02/25/21 05:15 ALT 15 units/L (7-56) 02/25/21 05:15 Alkaline Phosphatase 82 units/L (35-129) 02/25/21 05:15 Troponin T 0.301 ng/mL (0.00-0.029) H* D 02/25/21 05:15 Total Protein 7.4 g/dL (6.3-8.2) 02/25/21 05:15 Albumin 4.1 g/dL (3.9-5) 02/25/21 05:15 Albumin/Globulin Ratio 1.2 % 02/25/21 05:15 Triglycerides 71 mg/dL (2-149) 02/24/21 07:35 Cholesterol 127 mg/dL (50-199) 02/24/21 07:35 LDL Cholesterol Direct 74 mg/dL (50-130) 02/24/21 07:35 HDL Cholesterol 43 mg/dL (40-59) 02/24/21 07:35 Cholesterol/HDL Ratio 2.95 % 02/24/21 07:35 Ortiz/IV: Voiding Method Urinal Active Medications - Current Medications Current Medications: Generic Name Dose Route Start Last Admin Trade Name Freq PRN Reason Stop Dose Admin Acetaminophen 650 mg 02/24/21 05:14 Acetaminophen 325 Mg Tab PO Q4H PRN Pain MILD(1-3)/Fever >100.5/TOTH Al Hydrox/Mg Hydrox/Simethicone 30 ml 02/24/21 05:14 Alum-Mag Hydroxide-Simethicone [id number]/5ml Oral Liqd 30 Ml PO Q4H PRN Indigestion Albuterol 2.5 mg 02/24/21 05:14 Albuterol 2.5 Mg/3 Ml Nebu IH Q4HRT PRN Shortness Of Breath Amlodipine Besylate 10 mg 02/24/21 10:00 02/24/21 12:02 Amlodipine 10 Mg Tab PO Not Given QDAY BRIELLE Aspirin 325 mg 02/24/21 10:00 02/25/21 09:10 Aspirin 325 Mg Tab PO 325 mg QDAY BRIELLE Administration Atorvastatin Calcium 40 mg 02/24/21 22:00 02/24/21 21:22 Atorvastatin 40 Mg Tab PO 40 mg QHS BRIELLE Administration Benzonatate 100 mg 02/24/21 06:53 Benzonatate 100 Mg Cap PO Q8H PRN Cough Carvedilol 25 mg 02/24/21 10:00 02/25/21 09:10 Carvedilol 25 Mg Tab PO 25 mg BID BRIELLE Administration Clopidogrel Bisulfate 75 mg 02/24/21 10:00 02/25/21 09:10 Clopidogrel 75 Mg Tab PO 75 mg QDAY BRIELLE Administration Enoxaparin Sodium 40 mg 02/24/21 10:00 02/25/21 09:11 Enoxaparin 40 Mg/0.4 Ml Inj SUB-Q 40 mg DAILY BRIELLE Administration Protocol Famotidine 20 mg 02/24/21 10:00 02/25/21 09:12 Famotidine 20 Mg/2 Ml Inj IV 20 mg BID BRIELLE Administration Fluticasone Propionate 50 mcg 02/24/21 10:00 02/25/21 09:12 Fluticasone Propionate Nasal [place] 16 Gm NS 50 mcg QDAY [facility] Administration Magnesium Hydroxide 30 ml 02/24/21 05:14 Magnesium Hydroxide (Mom) Oral Liqd Udc PO Q4H PRN Constipation Metoclopramide HCl 10 mg 02/24/21 05:14 Metoclopramide 10 Mg/2 Ml Inj IV Q6H PRN Nausea And Vomiting Nicotine 21 mg 02/24/21 10:00 02/25/21 09:12 Nicotine 21 Mg/24 Hr Patch TD 21 mg QDAY [facility] Administration Ondansetron HCl 4 mg 02/24/21 05:14 Ondansetron 4 Mg/2 Ml Inj IV Q8H PRN Nausea And Vomiting Senna 8.6 mg 02/24/21 05:14 Sennosides 8.6 Mg Tab PO Q12HR PRN Constipation Sodium Chloride 10 ml 02/24/21 10:00 02/25/21 09:12 Sodium Chloride 0.9% 10 Ml Flush Syringe IV 10 ml BID BRIELLE Administration Sodium Chloride 10 ml 02/24/21 05:14 Sodium Chloride 0.9% 10 Ml Flush Syringe IV PRN PRN LINE FLUSH Tramadol HCl 50 mg 02/24/21 05:14 Tramadol 50 Mg Tab PO Q6H PRN Pain, Moderate (4-6)
[2021-02-25] MEDS: amLODIPine 10 MG TAB PO SCH (10:56)
--- NOTE | 2021-02-25 11:57 | Progress Note ---
Assessment and Plan NSTEMI * Echocardiogram 02/24/2021: LVEF is 55 to 60% LV normal size. LV SF normal. RV SF normal. RVSP is 22 mmHg. * Patient is currently chest pain-free without cardiac complaint. Repeat twelve-lead reviewed shows sinus rhythm with no acute ischemic changes. Troponin is elevated and trending upwards. Initiate heparin drip with standa rd intensity protocol, stop date 5 AM tomorrow morning. Heparin drip should be discontinued approximately 4 hours before planned procedure. Plan for left heart cath in a.m. N.p.o. after midnight. Procedure discussed with with patient including potential risks and benefits, patient is agreeable to proceed at this time. Hypertension * Continue current antihypertensive regimen Tobacco, illicit drug use * Cessation encouraged [facility] for Friday a.m., n.p.o. after midnight Friday night. Will follow This patient seen in conjunction with Dr Covarrubias who agrees with this assessment plan of care - Patient Problems (1) Diabetes mellitus Current Visit: Yes Status: Chronic (2) Chest pain Current Visit: Yes Status: Acute Qualifiers: Chest pain type: unspecified Qualified Code(s): R07.9 - Chest pain, unspecified (3) History of CVA (cerebrovascular accident) Current Visit: Yes Status: Chronic (4) Dyslipidemia Current Visit: Yes Status: Chronic (5) DVT prophylaxis Current Visit: Yes Status: Acute (6) HTN (hypertension) Current Visit: Yes Status: Chronic (7) Polysubstance abuse Current Visit: Yes Status: Chronic (8) Tobacco abuse Current Visit: Yes Status: Chronic (9) NSTEMI (non-ST elevated myocardial infarction) Current Visit: Yes Status: Acute Subjective Date of service: 02/25/21 Principal diagnosis: Chest Pain Interval history: Patient resting comfortably in bed. No shortness of breath or chest pain overnight Telemetry reviewed shows ventricular paced rhythm heart rate 95 with no events Objective Last Vital Signs Temp 97.6 F 02/25/21 08:06 Pulse 67 02/25/21 08:06 Resp 18 02/25/21 08:06 BP 129/81 02/25/21 08:06 Pulse Ox 95 02/25/21 08:06 - Physical Examination General: No Apparent Distress HEENT: Positive: PERRL, Normocephaly, Mucus Membranes Moist Neck: Positive: neck supple, trachea midline Cardiac: Positive: irregularly irregular, S1/S2 Lungs: Positive: Normal Exam, Normal Breath Sounds Neuro: Positive: Other (Right-sided deficit secondary to stroke history) Abdomen: Positive: Unremarkable, Soft Skin: Negative: Rash, Wound Musculoskeletal: No Pain Extremities: Present: upper extr. pulses, lower extr. pulses. Absent: edema - Labs and Meds Cardiac Enzymes 02/25/21 Range/Units 05:15 AST 27 (5-40) units/L CBC 02/25/21 Range/Units 05:15 WBC 8.0 (4.5-11.0) K/mm3 RBC 4.72 (3.65-5.03) M/mm3 Hgb 13.8 (11.8-15.2) gm/dl Hct 41.0 (35.5-45.6) % Plt Count 173 (140-440) K/mm3 Lymph # (Auto) 3.7 (1.2-5.4) K/mm3 [place] # (Auto) 0.6 (0.0-0.8) K/mm3 Eos # (Auto) 0.2 (0.0-0.4) K/mm3 Baso # (Auto) 0.0 (0.0-0.1) K/mm3 Comprehensive Metabolic Panel 02/25/21 Range/Units 05:15 Sodium 138 (137-145) mmol/L Potassium 3.6 (3.6-5.0) mmol/L Chloride 104.0 (98-107) mmol/L Carbon Dioxide 23 (22-30) mmol/L BUN 12 (9-20) mg/dL Creatinine 0.7 L (0.8-1.3) mg/dL Glucose 141 H (75-100) mg/dL Calcium 9.1 (8.4-10.2) mg/dL AST 27 (5-40) units/L ALT 15 (7-56) units/L Alkaline Phosphatase 82 (35-129) units/L Total Protein 7.4 (6.3-8.2) g/dL Albumin 4.1 (3.9-5) g/dL - Imaging and Cardiology EKG: report reviewed, image reviewed Echo: report reviewed (Echocardiogram 02/24/2021: LVEF is 55 to 60% LV normal size. LV SF normal. RV SF normal. RVSP is 22 mmHg.) Cardiac cath: pending - EKG Sinus rhythms and dysrhythmias: sinus rhythm
[2021-02-25] MEDS ORDERED: SODIUM CHLORIDE 0.9% 500 ML 500 ML IV SCH (13:00)
[2021-02-25 13:32] LABS: Hematocrit 43.4 % (35.5-45.6); Hemoglobin 14.7 gm/dl (11.8-15.2)
[2021-02-25] MEDS: HEPARIN/ 0.45% NACL DRIP 25,000 UNIT/500 ML BAG IV SCH (13:41)
[2021-02-25 13:43] LABS: INR 0.94 (0.87-1.13)
[2021-02-25] MEDS ORDERED: HEPARIN 10,000 UNITS/10 ML VIAL IV ONE (14:00)
[2021-02-25] MEDS ORDERED: HEPARIN 10,000 UNITS/10 ML VIAL IV PRN (14:00)
[2021-02-26] MEDS ORDERED: SODIUM CHLORIDE 0.9% 500 ML 500 ML ONE (07:44)
[2021-02-26] MEDS: CLOPIDOGREL 75 MG TAB PO SCH ×2 (07:50→10:58)
[2021-02-26] MEDS: ASPIRIN 325 MG TAB PO SCH ×2 (07:50→10:58)
[2021-02-26] MEDS ORDERED: HEPARIN/NS 5000 UNIT/500ML 1,000 ML IR ONE (08:13)
[2021-02-26] MEDS ORDERED: NITROGLYCERIN SYRINGE 0 ML ONE (08:14)
--- NOTE | 2021-02-26 08:20 | Discharge Summary ---
Providers - Providers Date of Admission: 02/24/21 04:02 Date of discharge: 02/26/21 Attending physician: CELSO POLK 02/24/21 Consult to Cardiac Rehabilitation [CONS] Routine Reason For Exam: Phase I 02/24/21 05:14 Consult to Physician [CONS] Routine Comment: Consulting Provider: CARMELA PACHECO Physician Instructions: Reason For Exam: chest pain 02/24/21 06:20 Occupational Therapy Evaluate and Treat [CONS] Routine Comment: Reason For Exam: right sided weakness Physical Therapy Evaluation and Treat [CONS] Routine Comment: Reason For Exam: right sided weakness Primary care physician: TRAIN MASTER Hospitalization Reason for admission: cp Condition: Critical Hospital course: Patient is a 65-year-old male with past medical history of diabetes mellitus type 2, hypertension, hyperlipidemia and CVA who presented to the emergency room with complaints of chest pain that began approximately 1 hour prior to admission which remained persistent which prompted his visit to the emergency room. ED work-up revealed WBC 9.9, hemoglobin 14.7, platelets 177, sodium 139, potassium 3.7, creatinine 0.8, and glucose serum 145, calcium 9.4, troponin negative. CT of the chest revealed cardiomegaly without overt failure or acute chest process. The patient was admitted with diagnosis of chest pain. The patient's chest pain resolved shortly after admission. Hospital course: 02/24/2021. Continue aspirin, Plavix and statin. Cardiology consultation pending. Follow-up echocardiogram. 02/25/2021. Echocardiogram revealed left ventricular size normal with systolic function normal as well. LVEF is 55 to 60%. Patient likely has impaired LV relaxation. Cardiology plans for stress test evaluation in a.m. patient was initiated on heparin drip by cardiology. Troponin was noted to be elevated and trending upwards. 02/26/2021. Patient to undergo cardiac catheterization with cardiology today. If cardiac catheterization found to be negative then patient will discharge home and etiology of chest pain likely GERD. Dedicated discharge time 35 minutes Disposition: [id number] TO HOME OR SELFCARE Final Discharge Diagnosis (Prints w/discharge instructions): Hypertension, hyperlipidemia, diabetes mellitus type 2, GERD Core Measure Documentation - Palliative Care Palliative Care/ Comfort Measures: Not Applicable - Core Measures Any of the following diagnoses?: none Exam - Constitutional Vitals: Temp Pulse Resp BP Pulse Ox 97.9 F 68 16 143/85 98 02/25/21 23:39 02/26/21 04:17 02/25/21 23:39 02/25/21 23:39 02/25/21 23:39 General appearance: Present: no acute distress, well-nourished - EENT Eyes: Present: PERRL ENT: hearing intact, clear oral mucosa - Neck Neck: Present: supple, normal ROM - Respiratory Respiratory effort: normal Respiratory: bilateral: CTA - Cardiovascular Heart Sounds: Present: S1 & S2. Absent: rub, click - Extremities Extremities: pulses symmetrical, No edema Peripheral Pulses: within normal limits - Abdominal General gastrointestinal: Present: soft, non-tender, non-distended, normal bowel sounds Male genitourinary: Present: normal - Integumentary Integumentary: Present: clear, warm, dry - Musculoskeletal Musculoskeletal: gait normal, strength equal bilaterally - Psychiatric Psychiatric: appropriate mood/affect, intact judgment & insight - Neurologic Neurologic: CNII-XII intact, moves all extremities Plan Activity: advance as tolerated Weight Bearing Status: Weight Bear as Tolerated Diet: low fat, low cholesterol, low salt, diabetic Follow up with: PRIMARY CARE, [Primary Care Provider] - 3-5 Days VENITA PALOMINO MD [Staff Physician] - 7 Days Prescriptions: amLODIPine 10 mg PO QDAY #30 tablet Pantoprazole [Protonix] 40 mg PO QDAY #30 tablet
[2021-02-26] MEDS: fentaNYL 100 MCG/2 ML INJ ONE ×2 (09:02→09:22)
[2021-02-26] MEDS: MIDAZOLAM 2 MG/2 ML INJ ONE ×2 (09:03→09:22)
[2021-02-26] MEDS: LIDOCAINE (2%) 20 MG/1 ML VIAL 20 ML MDV INFILTRATI ONE ×2 (09:03→09:26)
[2021-02-26] MEDS: VERAPAMIL 5 MG/2 ML INJ ONE ×2 (09:04→09:29)
[2021-02-26] MEDS: HEPARIN 10,000 UNITS/10 ML VIAL ONE ×2 (09:05→09:29)
[2021-02-26] MEDS ORDERED: HEPARIN/ 0.45% NACL DRIP 25,000 UNIT/500 ML BAG ONE (10:07)
[2021-02-26] MEDS: HEPARIN/ 0.45% NACL DRIP 25,000 UNIT/500 ML BAG IV SCH (10:20)
--- NOTE | 2021-02-26 10:54 | Progress Note ---
Assessment and Plan Assessment and plan: Chest pain History of CVA Hypertension Tobacco abuse 02/24/2021. Continue aspirin, Plavix and statin. Cardiology consultation pending. Follow-up echocardiogram. 02/25/2021. Echocardiogram revealed left ventricular size normal with systolic function normal as well. LVEF is 55 to 60%. Patient likely has impaired LV relaxation. Cardiology plans for cardiac catheterization in a.m. 02/26/2021. Patient for cardiac catheterization this morning. Patient will need PCI/staging tomorrow a.m. Await final results of cardiac catheterization done this morning. History Interval history: No new issues overnight Hospitalist Physical - Constitutional Vitals: Temp Pulse Resp BP Pulse Ox 97.9 F 68 16 143/85 98 02/25/21 23:39 02/26/21 04:17 02/25/21 23:39 02/25/21 23:39 02/25/21 23:39 General appearance: Present: no acute distress, well-nourished - EENT Eyes: Present: PERRL, EOM intact ENT: hearing intact, clear oral mucosa, dentition normal - Neck Neck: Present: supple, normal ROM - Respiratory Respiratory effort: normal Respiratory: bilateral: CTA - Cardiovascular Rhythm: regular Heart Sounds: Present: S1 & S2. Absent: gallop, rub - Extremities Extremities: no ischemia, No edema, Full ROM - Abdominal General gastrointestinal: soft, non-tender, non-distended, normal bowel sounds - Integumentary Integumentary: Present: clear, warm, dry - Neurologic Neurologic: CNII-XII intact, moves all extremities HEART Score - HEART Score EKG: Non-specific Age: 45-65 Risk factors: > 3 risk factors or hx of atherosclerotic disease Troponin: Troponin T 0.268 ng/mL (0.00-0.029) H* 02/25/21 10:12 Troponin: < normal limit Results - Labs CBC & Chem 7: 02/25/21 13:05 02/25/21 05:15 Labs: Laboratory Last Values WBC 8.0 K/mm3 (4.5-11.0) 02/25/21 05:15 RBC 4.72 M/mm3 (3.65-5.03) 02/25/21 05:15 Hgb 14.7 gm/dl (11.8-15.2) 02/25/21 13:05 Hct 43.4 % (35.5-45.6) 02/25/21 13:05 MCV 87 fl (84-94) 02/25/21 05:15 MCH 29 pg (28-32) 02/25/21 05:15 MCHC 34 % (32-34) 02/25/21 05:15 RDW 14.7 % (13.2-15.2) 02/25/21 05:15 Plt Count 180 K/mm3 (140-440) 02/25/21 13:05 Lymph % (Auto) 46.5 % (13.4-35.0) H 02/25/21 05:15 [place] % (Auto) 8.2 % (0.0-7.3) H 02/25/21 05:15 Eos % (Auto) 2.5 % (0.0-4.3) 02/25/21 05:15 Baso % (Auto) 0.4 % (0.0-1.8) 02/25/21 05:15 Lymph # (Auto) 3.7 K/mm3 (1.2-5.4) 02/25/21 05:15 [place] # (Auto) 0.6 K/mm3 (0.0-0.8) 02/25/21 05:15 Eos # (Auto) 0.2 K/mm3 (0.0-0.4) 02/25/21 05:15 Baso # (Auto) 0.0 K/mm3 (0.0-0.1) 02/25/21 05:15 Seg Neutrophils % 42.4 % (40.0-70.0) 02/25/21 05:15 Seg Neutrophils # 3.4 K/mm3 (1.8-7.7) 02/25/21 05:15 PT 13.1 Sec. (12.2-14.9) 02/25/21 13:05 INR 0.94 (0.87-1.13) 02/25/21 13:05 APTT 38.0 Sec. (24.2-36.6) H 02/25/21 13:05 Heparin Anti-Xa Level 0.71 U.I./ml (0.3-0.7) H 02/25/21 19:52 Sodium 138 mmol/L (137-145) 02/25/21 05:15 Potassium 3.6 mmol/L (3.6-5.0) 02/25/21 05:15 Chloride 104.0 mmol/L (98-107) 02/25/21 05:15 Carbon Dioxide 23 mmol/L (22-30) 02/25/21 05:15 Anion Gap 15 mmol/L 02/25/21 05:15 BUN 12 mg/dL (9-20) 02/25/21 05:15 Creatinine 0.7 mg/dL (0.8-1.3) L 02/25/21 05:15 Estimated GFR > 60 ml/min 02/25/21 05:15 BUN/Creatinine Ratio 17 % 02/25/21 05:15 Glucose 141 mg/dL (75-100) H 02/25/21 05:15 POC Glucose 132 mg/dL (70-105) H 02/26/21 06:27 Hemoglobin A1c 7.7 % (4-6) H 02/24/21 06:05 Calcium 9.1 mg/dL (8.4-10.2) 02/25/21 05:15 Total Bilirubin 0.30 mg/dL (0.1-1.2) 02/25/21 05:15 AST 27 units/L (5-40) 02/25/21 05:15 ALT 15 units/L (7-56) 02/25/21 05:15 Alkaline Phosphatase 82 units/L (35-129) 02/25/21 05:15 Troponin T 0.268 ng/mL (0.00-0.029) H* 02/25/21 10:12 Total Protein 7.4 g/dL (6.3-8.2) 02/25/21 05:15 Albumin 4.1 g/dL (3.9-5) 02/25/21 05:15 Albumin/Globulin Ratio 1.2 % 02/25/21 05:15 Triglycerides 71 mg/dL (2-149) 02/24/21 07:35 Cholesterol 127 mg/dL (50-199) 02/24/21 07:35 LDL Cholesterol Direct 74 mg/dL (50-130) 02/24/21 07:35 HDL Cholesterol 43 mg/dL (40-59) 02/24/21 07:35 Cholesterol/HDL Ratio 2.95 % 02/24/21 07:35 Ortiz/IV: Voiding Method Urinal Active Medications - Current Medications Current Medications: Generic Name Dose Route Start Last Admin Trade Name Freq PRN Reason Stop Dose Admin Acetaminophen 650 mg 02/24/21 05:14 Acetaminophen 325 Mg Tab PO Q4H PRN Pain MILD(1-3)/Fever >100.5/TOTH Al Hydrox/Mg Hydrox/Simethicone 30 ml 02/24/21 05:14 Alum-Mag Hydroxide-Simethicone [id number]/5ml Oral Liqd 30 Ml PO Q4H PRN Indigestion Albuterol 2.5 mg 02/24/21 05:14 Albuterol 2.5 Mg/3 Ml Nebu IH Q4HRT PRN Shortness Of Breath Amlodipine Besylate 10 mg 02/24/21 10:00 02/25/21 10:56 Amlodipine 10 Mg Tab PO 10 mg QDAY BRIELLE Administration Aspirin 325 mg 02/24/21 10:00 02/26/21 07:50 Aspirin 325 Mg Tab PO 325 mg QDAY BRIELLE Administration Atorvastatin Calcium 40 mg 02/24/21 22:00 02/25/21 21:42 Atorvastatin 40 Mg Tab PO 40 mg QHS BRIELLE Administration Benzonatate 100 mg 02/24/21 06:53 Benzonatate 100 Mg Cap PO Q8H PRN Cough Carvedilol 25 mg 02/24/21 10:00 02/25/21 21:42 Carvedilol 25 Mg Tab PO 25 mg BID BRIELLE Administration Clopidogrel Bisulfate 75 mg 02/24/21 10:00 02/26/21 07:50 Clopidogrel 75 Mg Tab PO 75 mg QDAY BRIELLE Administration Famotidine 20 mg 02/24/21 10:00 02/25/21 21:43 Famotidine 20 Mg/2 Ml Inj IV 20 mg BID BRIELLE Administration Fluticasone Propionate 50 mcg 02/24/21 10:00 02/25/21 09:12 Fluticasone Propionate Nasal [place] 16 Gm NS 50 mcg QDAY BRIELLE Administration Heparin Sodium (Porcine) 3,400 unit 02/25/21 14:00 Heparin 10,000 Units/10 Ml Vial 40 unit/kg (3400 unit) IV Q6H PRN Anti-Xa Assay < 0.1 units/ml Heparin Sodium/Sodium Chloride 25,000 unit in 500 mls @ 20 mls/hr 02/25/21 14:00 02/26/21 10:20 Heparin/ 0.45% Nacl-25,000 Unit/500 Ml IV 02/26/21 13:59 1,000 units/hr TITRATE BRIELLE 20 mls/hr Administration Protocol 1,000 UNITS/HR Magnesium Hydroxide 30 ml 02/24/21 05:14 Magnesium Hydroxide (Mom) Oral Liqd Udc PO Q4H PRN Constipation Metoclopramide HCl 10 mg 02/24/21 05:14 Metoclopramide 10 Mg/2 Ml Inj IV Q6H PRN Nausea And Vomiting Nicotine 21 mg 02/24/21 10:00 02/25/21 09:12 Nicotine 21 Mg/24 Hr Patch TD 21 mg QDAY BRIELLE Administration Ondansetron HCl 4 mg 02/24/21 05:14 Ondansetron 4 Mg/2 Ml Inj IV Q8H PRN Nausea And Vomiting Senna 8.6 mg 02/24/21 05:14 Sennosides 8.6 Mg Tab PO Q12HR PRN Constipation Sodium Chloride 10 ml 02/24/21 10:00 02/26/21 07:31 Sodium Chloride 0.9% 10 Ml Flush Syringe IV Not Given BID BRIELLE Sodium Chloride 10 ml 02/24/21 05:14 Sodium Chloride 0.9% 10 Ml Flush Syringe IV PRN PRN LINE FLUSH Tramadol HCl 50 mg 02/24/21 05:14 Tramadol 50 Mg Tab PO Q6H PRN Pain, Moderate (4-6)
[2021-02-26] MEDS: amLODIPine 10 MG TAB PO SCH (10:58)
[2021-02-26] MEDS: FAMOTIDINE 20 MG/2 ML INJ IV SCH (10:58)
[2021-02-26] MEDS: NICOTINE 21 MG/24 HR PATCH TD SCH (10:58)
[2021-02-26] MEDS: carvediloL 25 MG TAB PO SCH ×2 (10:58→22:50)
[2021-02-26] MEDS: FLUTICASONE PROPIONATE NASAL SPRAY 16 GM NS SCH (11:03)
--- NOTE | 2021-02-26 11:11 | Progress Note ---
Assessment and Plan NSTEMI * Echocardiogram 02/24/2021: LVEF is 55 to 60% LV normal size. LV SF normal. RV SF normal. RVSP is 22 mmHg. * [facility] 02/26/2021 shows severe mid RCA occlusion with global nonobstructive coronary artery disease. Resume heparin drip standard intensity protocol with no loading dose. Heparin drip should be discontinued in a.m. at approximately 5 AM, 4 hours prior to procedure. We will plan for staged PCI in a.m. N.p.o. after midnight. Hypertension * Continue current antihypertensive regimen Tobacco, illicit drug use * Cessation encouraged Plan interventional PCI in a.m. n.p.o. after midnight we will follow This patient seen in conjunction with Dr Covarrubias who agrees with this assessment plan of care - Patient Problems (1) Diabetes mellitus Current Visit: Yes Status: Chronic (2) Chest pain Current Visit: Yes Status: Acute Qualifiers: Chest pain type: unspecified Qualified Code(s): R07.9 - Chest pain, unspecified (3) History of CVA (cerebrovascular accident) Current Visit: Yes Status: Chronic (4) Dyslipidemia Current Visit: Yes Status: Chronic (5) DVT prophylaxis Current Visit: Yes Status: Acute (6) HTN (hypertension) Current Visit: Yes Status: Chronic (7) Polysubstance abuse Current Visit: Yes Status: Chronic (8) Tobacco abuse Current Visit: Yes Status: Chronic (9) NSTEMI (non-ST elevated myocardial infarction) Current Visit: Yes Status: Acute Subjective Date of service: 02/26/21 Principal diagnosis: Coronary Artery Dsease Interval history: Patient resting comfortably in bed no shortness of breath or chest pain overnight. Telemetry reviewed: Sinus rhythm 74. No events Objective Last Vital Signs Temp 97.9 F 02/25/21 23:39 Pulse 68 02/26/21 04:17 Resp 16 02/25/21 23:39 BP 143/85 02/25/21 23:39 Pulse Ox 98 02/25/21 23:39 - Physical Examination General: No Apparent Distress HEENT: Positive: PERRL, Normocephaly, Mucus Membranes Moist Neck: Positive: neck supple, trachea midline Cardiac: Positive: Reg Rate and Rhythm, S1/S2 Lungs: Positive: Normal Exam, Normal Breath Sounds Neuro: Positive: Other (Right-sided deficit secondary to stroke history) Abdomen: Positive: Unremarkable, Soft Skin: Negative: Rash, Wound Musculoskeletal: No Pain Extremities: Present: upper extr. pulses, lower extr. pulses. Absent: edema - Labs and Meds Coagulation 02/25/21 Range/Units 13:05 PT 13.1 (12.2-14.9) Sec. INR 0.94 (0.87-1.13) APTT 38.0 H (24.2-36.6) Sec. CBC 02/25/21 Range/Units 13:05 Hgb 14.7 (11.8-15.2) gm/dl Hct 43.4 (35.5-45.6) % Plt Count 180 (140-440) K/mm3 - Imaging and Cardiology EKG: report reviewed, image reviewed Echo: report reviewed (Echocardiogram 02/24/2021: LVEF is 55 to 60% LV normal size. LV SF normal. RV SF normal. RVSP is 22 mmHg.) Cardiac cath: report reviewed ([facility] 02/26/2021: Severe mid RCA occlusion. Will plan for staged PCI in a.m.) - Telemetry EKG Rhythm: Sinus Rhythm - EKG Sinus rhythms and dysrhythmias: sinus rhythm
--- NOTE | 2021-02-26 11:25 | Electrocardiograph Report ---
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
[2021-02-26 14:17] LABS: Basophils % (Auto) 0.4 % (0.0-1.8); Eosinophils # (Auto) 0.2 K/mm3 (0.0-0.4); Eosinophils % (Auto) 2.3 % (0.0-4.3); Hematocrit 43.8 % (35.5-45.6); Hemoglobin 14.6 gm/dl (11.8-15.2); Lymphocytes % (Auto) 43.2 % (13.4-35.0); Mean Corpuscular HGB Conc 33 % (32-34); Mean Corpuscular Volume 88 fl (84-94); Monocytes # (Auto) 0.5 K/mm3 (0.0-0.8); Monocytes % (Auto) 7.5 % (0.0-7.3); Platelet Count 167 K/mm3 (140-440); Red Cell Distribution Width 14.8 % (13.2-15.2)
[2021-02-26 14:30] LABS: INR 0.99 (0.87-1.13)
[2021-02-26 14:41] LABS: Hemolysis Index 3
--- NOTE | 2021-02-26 14:54 | Cardiac Catherization Report ---
DATE OF SERVICE: 02/26/2021 INDICATION: The patient is a 65-year-old gentleman being followed in our office by Dr. Juliano Martinez in the past with history of essential hypertension, hyperlipidemia and diabetes in addition to history of a CVA with right-sided deficits, presented to the Emergency Room with chest pain of 1 hour duration. Cardiac enzymes showed evidence of increased troponin, initial level being 0.050 and repeat one is 0.268. Because of elevated troponins, with multiple risk factors, he was scheduled for cardiac catheterization for definitive diagnosis and treatment. The patient is aware of the procedure, potential complications and the alternatives of therapy available. DESCRIPTION OF PROCEDURE: The patient was brought to the catheterization laboratory in a fasting condition. The patient was evaluated for moderate sedation and thus felt to be an appropriate candidate for moderate sedation. Received IV Versed and fentanyl. Subsequently local anesthesia was given in the right wrist area followed by obtaining the access of the right radial artery. A 5-Kazakh slender sheath was introduced. A 6-Kazakh multipurpose catheter was used to obtain the left ventriculogram done in HARO projection using hand injection followed by angiograms of the right coronary artery using 5-Kazakh TIG catheter. Angiograms of the left coronary artery were obtained; however, these were only nonselective angiograms, which showed borderline lesion in the mid LAD. Considering the patient has a severe RCA lesion and difficult to engage the left coronary system from the right radial artery, it was felt that we would proceed with intervention of the RCA along with selective angiograms of the left coronary artery using right femoral approach tomorrow. Same was explained to the patient and is agreeable with the plan. The patient's sedation started at 9:22 a.m. and ended at 9:54 a.m. The patient was monitored with pulse oximetry, EKG monitoring and hemodynamic monitoring throughout. The patient at the end of the procedure is communicating normally. Following right radial access was closed with application of radial band and good hemostasis was achieved. Following findings were noted. HEMODYNAMICS: 1. Opening aortic pressure 130/77. Left ventricular pressure 130/18. No gradient across the aortic valve. Estimated ejection fraction 55%. 2. Left ventriculogram done in HARO projection showed normal sized left ventricle with normal contractility. End diastolic, end systolic volumes are normal. Mitral regurgitation could not be evaluated because of limited amount of dye injected. 3. Right coronary artery dominant vessel shows very long severe concentric lesion approaching 92-95% in the mid part. Proximal and distal RCA showed mild irregularities. 4. Left coronary artery engaged only sub-selectively. Subselective injections showed left main without significant disease. Mid LAD showed 50-60% borderline lesion in the mid part of the LAD. Rest of the LAD and its branches and circumflex artery and its branches did not show any significant abnormalities. FINAL IMPRESSION: 1. Normal-sized left ventricle with normal contractility and mildly elevated end-diastolic pressure. 2. Severe long concentric lesion involving the dominant right coronary artery with borderline mid left anterior descending lesion. The lesion in the RCA appears to be long and thrombotic. We will continue IV heparin and we will consider elective intervention of the RCA along with angiograms of the left coronary artery more selectively using femoral approach. Same was explained to the patient. The patient is agreeable with the plan. No untoward complications were noted. TID: [id number] RECEIPT: [id number] ZARI/BRAYDON/NIKO BENAVIDEZ
--- NOTE | 2021-02-26 17:47 | Electrocardiograph Report ---
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
--- NOTE | 2021-02-26 17:50 | Electrocardiograph Report ---
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
[2021-02-26 19:03] LABS: BUN/Creatinine Ratio 12; Blood Urea Nitrogen 11 mg/dL (9-20)
[2021-02-26 19:04] LABS: Calcium 8.8 mg/dL (8.4-10.2)
[2021-02-26] MEDS: FAMOTIDINE 20 MG TAB PO SCH (22:50)
[2021-02-27 05:21] LABS: Hematocrit 41.5 % (35.5-45.6); Hemoglobin 14.1 gm/dl (11.8-15.2); Mean Corpuscular HGB Conc 34 % (32-34); Mean Corpuscular Volume 86 fl (84-94); Platelet Count 186 K/mm3 (140-440); Red Blood Count 4.82 M/mm3 (3.65-5.03); Red Cell Distribution Width 14.8 % (13.2-15.2)
[2021-02-27 05:31] LABS: INR 0.95 (0.87-1.13)
[2021-02-27 05:38] LABS: Partial Thromboplastin Time 91.7 Sec. (24.2-36.6)
[2021-02-27 05:44] LABS: BUN/Creatinine Ratio 15; Blood Urea Nitrogen 12 mg/dL (9-20); Calcium 9.2 mg/dL (8.4-10.2); Hemolysis Index 10
[2021-02-27] MEDS: CLOPIDOGREL 75 MG TAB PO SCH ×2 (07:17→10:11)
[2021-02-27] MEDS: ASPIRIN 325 MG TAB PO SCH ×2 (07:17→14:24)
[2021-02-27] MEDS: SODIUM CHLORIDE 0.9% 500 ML 500 ML IV SCH ×2 (07:35→10:08)
[2021-02-27] MEDS ORDERED: HEPARIN/NS 5000 UNIT/500ML 1,000 ML IR ONE (08:09)
[2021-02-27] MEDS ORDERED: MIDAZOLAM 2 MG/2 ML INJ ONE (08:10)
[2021-02-27] MEDS ORDERED: NITROGLYCERIN SYRINGE 0 ML ONE (08:12)
[2021-02-27] MEDS: MIDAZOLAM 2 MG/2 ML INJ ONE ×2 (08:36→08:47)
[2021-02-27] MEDS: fentaNYL 100 MCG/2 ML INJ ONE ×3 (08:36→09:07)
[2021-02-27] MEDS: LIDOCAINE (2%) 20 MG/1 ML VIAL 20 ML MDV INFILTRATI ONE ×2 (08:37→08:55)
[2021-02-27] MEDS ORDERED: HEPARIN/NS 5000 UNIT/500ML 500 ML IR ONE (08:44)
[2021-02-27] MEDS ORDERED: ATROPINE 0.1% (1 MG/10 ML) CARDIAC SYRINGE ONE (08:54)
[2021-02-27] MEDS ORDERED: LIDOCAINE (2%) 20 MG/1 ML VIAL 20 ML MDV INFILTRATI ONE (09:04)
[2021-02-27] MEDS: HEPARIN 10,000 UNITS/10 ML VIAL ONE ×4 (09:16→15:18)
[2021-02-27] MEDS ORDERED: CLOPIDOGREL 300 MG TAB ONE (09:56)
[2021-02-27] MEDS ORDERED: hydrALAZINE 20 MG/1 ML INJ ONE (10:05)
[2021-02-27] MEDS ORDERED: SODIUM CHLORIDE 0.9% 500 ML 500 ML ONE (10:05)
--- NOTE | 2021-02-27 10:50 | Electrocardiograph Report ---
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 Myocardial infarct finding now present Ectopic atrial rhythm no longer present Atrial premature complex(es) no longer present Left-axis deviation no longer present Incomplete right bundle-branch block no longer present Electronically Signed On 02-27-2021 10:50:02 EDT by Og Covarrubias
--- NOTE | 2021-02-27 10:57 | Progress Note ---
Assessment and Plan NSTEMI * Echocardiogram 02/24/2021: LVEF is 55 to 60% LV normal size. LV SF normal. RV SF normal. RVSP is 22 mmHg. * [facility] with PCI 02/27/2021. ERIC placed mid RCA. DAPT with ASA 81, Plavix 75 going forward x1 year. Continue Coreg 25 mg twice daily, atorvastatin 40 mg nightly Hypertension * Continue current antihypertensive regimen Tobacco, illicit drug use * Cessation encouraged Anticipate discharge in a.m. Will follow Patient should follow-up with Dr. Juliano Martinez, [facility] multimedia specialist within 1 to 2 weeks of discharge (scheduling pending). #[phone] This patient seen in conjunction with Dr Covarrubias who agrees with this assessment plan of care - Patient Problems (1) Diabetes mellitus Current Visit: Yes Status: Chronic (2) Chest pain Current Visit: Yes Status: Acute Qualifiers: Chest pain type: unspecified Qualified Code(s): R07.9 - Chest pain, unspecified (3) History of CVA (cerebrovascular accident) Current Visit: Yes Status: Chronic (4) Dyslipidemia Current Visit: Yes Status: Chronic (5) DVT prophylaxis Current Visit: Yes Status: Acute (6) HTN (hypertension) Current Visit: Yes Status: Chronic (7) Polysubstance abuse Current Visit: Yes Status: Chronic (8) Tobacco abuse Current Visit: Yes Status: Chronic (9) NSTEMI (non-ST elevated myocardial infarction) Current Visit: Yes Status: Acute Subjective Date of service: 02/27/21 Principal diagnosis: Coronary Artery Dsease Interval history: Patient resting comfortably in bed. No shortness of breath or chest pain overnight Telemetry reviewed sinus rhythm 65. No events Objective Last Vital Signs Temp 98.5 F 02/27/21 04:27 Pulse 68 02/27/21 10:50 Resp 11 L 02/27/21 10:50 BP 153/84 02/27/21 10:50 Pulse Ox 100 02/27/21 10:50 - Physical Examination General: No Apparent Distress HEENT: Positive: PERRL, Normocephaly, Mucus Membranes Moist Neck: Positive: neck supple, trachea midline Cardiac: Positive: Reg Rate and Rhythm, S1/S2 Lungs: Positive: Normal Exam, Normal Breath Sounds Neuro: Positive: Other (Right-sided deficit secondary to stroke history) Abdomen: Positive: Unremarkable, Soft Skin: Negative: Rash, Wound Musculoskeletal: No Pain Extremities: Present: upper extr. pulses, lower extr. pulses. Absent: edema - Labs and Meds Coagulation 02/26/21 02/27/21 Range/Units 13:52 04:39 PT 13.6 13.2 (12.2-14.9) Sec. INR 0.99 0.95 (0.87-1.13) APTT 91.7 H* (24.2-36.6) Sec. CBC 02/26/21 02/27/21 Range/Units 13:52 04:39 WBC 6.9 8.6 (4.5-11.0) K/mm3 RBC 5.00 4.82 (3.65-5.03) M/mm3 Hgb 14.6 14.1 (11.8-15.2) gm/dl Hct 43.8 41.5 (35.5-45.6) % Plt Count 167 186 (140-440) K/mm3 Lymph # (Auto) 3.0 (1.2-5.4) K/mm3 [place] # (Auto) 0.5 (0.0-0.8) K/mm3 Eos # (Auto) 0.2 (0.0-0.4) K/mm3 Baso # (Auto) 0.0 (0.0-0.1) K/mm3 Comprehensive Metabolic Panel 02/26/21 02/27/21 Range/Units 13:52 04:39 Sodium 139 139 (137-145) mmol/L Potassium 3.9 3.7 (3.6-5.0) mmol/L Chloride 104.0 103.1 (98-107) mmol/L Carbon Dioxide 22 25 (22-30) mmol/L BUN 11 12 (9-20) mg/dL Creatinine 0.9 0.8 (0.8-1.3) mg/dL Glucose 206 H 115 H (75-100) mg/dL Calcium 8.8 9.2 (8.4-10.2) mg/dL - Imaging and Cardiology EKG: report reviewed, image reviewed Echo: report reviewed (Echocardiogram 02/24/2021: LVEF is 55 to 60% LV normal size. LV SF normal. RV SF normal. RVSP is 22 mmHg.) Cardiac cath: report reviewed ([facility] 02/26/2021: Severe mid RCA occlusion. Will plan for staged PCI in a.m.) - Telemetry EKG Rhythm: Sinus Rhythm - EKG Sinus rhythms and dysrhythmias: sinus rhythm
--- NOTE | 2021-02-27 11:39 | Cardiac Catherization Report ---
DATE OF SERVICE: 02/27/2021 CORONARY ANGIOGRAPHY AND CORONARY INTERVENTION INDICATION: The patient is a 65-year-old -Welsh gentleman with history of hypertension, diabetes mellitus, was admitted with chest pain of 1 hour duration and noted to have elevated troponins and cardiac catheterization showed severe long thrombotic lesion in the mid RCA and is being brought to the catheterization laboratory in a staged fashion to do the intervention of the RCA. The patient also was noted to have borderline lesion in the mid LAD. Normal left ventricular function noted. It was difficult to engage the left coronary artery yesterday with diagnostic catheters. DESCRIPTION OF PROCEDURE: The patient was brought to the catheterization laboratory in a fasting condition. The patient was on IV heparin, which was discontinued a few hours prior to procedure. Considering the difficulty with engaging the left coronary artery yesterday, right femoral artery was used as access; however, a 5-Azerbaijani micropuncture was used to get the access of the right femoral artery. However, it is entering into a small branch on multiple attempts. Hence access was changed to the left groin and this was done after sedating the patient with IV Versed and fentanyl, and giving local anesthesia. A 6-Azerbaijani sheath was introduced in the left groin. The patient was given heparin as the anticoagulant after checking the ACT. A 6-Azerbaijani JR4 guiding catheter was used to engage the right coronary artery. A 0.014 inch Wren XT guidewire was advanced into the distal RCA. Coronary angiography of the RCA showed severe long thrombotic lesion in the mid RCA. Lesion was dilated with 2.0 x 3.0 x 20 mm Euphora balloon to 8 atmospheres followed by placement of a 3.0 x 26 mm Resolute Cornell stent inflated to 16 atmospheres with very good result. I was prepared in a standard fashion and intravascular ultrasound of the right coronary artery was performed in a standard fashion. Proximal velocity was found to be 4.0 cm in diameter with mild to moderate disease. A stented area showed 3.0 mm diameter all over with excellent apposition. Appears to be fully expanded. However, this distal RCA was noted to be only 3.0 mm in diameter with moderate disease. Considering the distal vessel is only 3.0 and the stent is well expanded at 3.0 mm, no further dilation of the stent was performed. No proximal or distal dissection or embolization noted. No suggestion of perforation noted. After obtaining a good result in the mid RCA, and ACT was checked and extra dose of heparin was given. A right coronary guiding catheter was exchanged initially with an EBU 3.75 guiding catheter, which could not engage the LCA. Similarly, a JL 3.5 could not engage. However, EBU 3.5 could engage the left coronary artery and selective angiograms were obtained, which showed only 40% mid LAD lesion with mild irregularities elsewhere else. Circumflex artery similarly showed mild irregularities. Considering the nonobstructive nature of the mid LAD, it was felt the patient could be continued on risk factor modification and medical therapy. At the end of the procedure, catheter was removed and manual pressure was applied in the left groin. Similarly, a pressure bandage was applied in the right groin where micropuncture needle was used to obtain access. The patient tolerated the procedure well, hemodynamically stable. No arrhythmia noted. The patient tolerated the procedure well. Mid RCA lesion was reduced from 95% to 0% and no complications noted. PHYLLIS 3 flow was noted pre and post-procedure. The patient initially was evaluated for moderate sedation and was felt to be an appropriate candidate. Received moderate sedation with IV Versed and fentanyl starting at 8:47 a.m. and moderate sedation and direct monitoring ended at 9:49 a.m. The patient was monitored with pulse oximetry, EKG monitoring and hemodynamic monitoring throughout the procedure. Findings were explained to the patient. The patient was transferred to the outpatient area in stable condition. Vital signs have been stable. He will be monitored for any development of hematoma in either left or right groin. The patient was given Plavix as an antiplatelet agent in addition to the aspirin. FINAL IMPRESSION: 1. Uncomplicated drug-eluting stent placement of the mid right coronary artery with excellent result. 2. Only nonobstructive lesion noted in the mid left anterior descending and coronary angiography. An EBU 3.0 guiding catheter was used to engage the left coronary artery. The patient tolerated the procedure well. TID: [id number] RECEIPT: [id number] ZARI/RYNE BENAVIDEZ
[2021-02-27] MEDS: amLODIPine 10 MG TAB PO SCH (15:17)
[2021-02-27] MEDS: carvediloL 25 MG TAB PO SCH ×2 (15:17→21:11)
[2021-02-27] MEDS: FLUTICASONE PROPIONATE NASAL SPRAY 16 GM NS SCH (15:18)
[2021-02-27] MEDS: NICOTINE 21 MG/24 HR PATCH TD SCH ×2 (15:18→18:36)
[2021-02-27] MEDS: FAMOTIDINE 20 MG TAB PO SCH ×2 (15:19→21:11)
--- NOTE | 2021-02-27 16:43 | Progress Note ---
Assessment and Plan Assessment and plan: 65-year-old -Kyrgy[place] male who presents with acute chest pain NSTEMI Cardiology consulted Cardiac catheterization per cardiology on 02/26/2021, occlusion of RCA Cardiac catheterization with PCI of RCA, ERIC placed. On 02/27/2021 Aspirin and Plavix for at least 1 year Coreg 25 mg twice daily Atorvastatin daily Hypertension Continue Coreg History of CVA Continue aspirin and Plavix Tobacco use Cessation CODE STATUS: Full DVT prophylaxis: Heparin Disposition: Patient will follow up with cardiology within 1 to 2 weeks. History Interval history: 02/27/2021: Patient seen and examined after cardiac catheterization, ERIC placed in RCA. No complications. Hospitalist Physical - Physical exam Narrative exam: General appearance: no acute distress, well-nourished EENT: PERRL, EOM intact, hearing intact, clear oral mucosa Neck: Present: supple, normal ROM Respiratory: bilateral CTA, negative: rales, rhonchi, wheezing Cardiovascular: Regular rate/rhythm, Normal S1 & S2. No gallop, rub, femoral site of catheterization without bleeding or swelling Extremities: no ischemia, No edema, normal temperature, normal color, Full ROM Abdominal: soft, no tenderness, non-distended, normal bowel sounds Integumentary: Present: clear, warm, dry no wounds, no erythema noted Psychiatric: appropriate mood/affect, intact judgment & insight Neurologic: CNII-XII intact, moves all extremities, no sensory or motor abnormalities - Constitutional Vitals: Temp Pulse Resp BP Pulse Ox 98.5 F 67 13 126/81 100 02/27/21 04:27 02/27/21 13:30 02/27/21 13:30 02/27/21 13:30 02/27/21 13:30 HEART Score - HEART Score EKG: Non-specific Age: 45-65 Risk factors: > 3 risk factors or hx of atherosclerotic disease Troponin: Troponin T 0.268 ng/mL (0.00-0.029) H* 02/25/21 10:12 Troponin: < normal limit Results - Labs CBC & Chem 7: 02/27/21 04:39 02/27/21 04:39 Labs: Laboratory Last Values WBC 8.6 K/mm3 (4.5-11.0) 02/27/21 04:39 RBC 4.82 M/mm3 (3.65-5.03) 02/27/21 04:39 Hgb 14.1 gm/dl (11.8-15.2) 02/27/21 04:39 Hct 41.5 % (35.5-45.6) 02/27/21 04:39 MCV 86 fl (84-94) 02/27/21 04:39 MCH 29 pg (28-32) 02/27/21 04:39 MCHC 34 % (32-34) 02/27/21 04:39 RDW 14.8 % (13.2-15.2) 02/27/21 04:39 Plt Count 186 K/mm3 (140-440) 02/27/21 04:39 Lymph % (Auto) 43.2 % (13.4-35.0) H 02/26/21 13:52 Becker % (Auto) 7.5 % (0.0-7.3) H 02/26/21 13:52 Eos % (Auto) 2.3 % (0.0-4.3) 02/26/21 13:52 Baso % (Auto) 0.4 % (0.0-1.8) 02/26/21 13:52 Lymph # (Auto) 3.0 K/mm3 (1.2-5.4) 02/26/21 13:52 [place] # (Auto) 0.5 K/mm3 (0.0-0.8) 02/26/21 13:52 Eos # (Auto) 0.2 K/mm3 (0.0-0.4) 02/26/21 13:52 Baso # (Auto) 0.0 K/mm3 (0.0-0.1) 02/26/21 13:52 Seg Neutrophils % 46.6 % (40.0-70.0) 02/26/21 13:52 Seg Neutrophils # 3.2 K/mm3 (1.8-7.7) 02/26/21 13:52 PT 13.2 Sec. (12.2-14.9) 02/27/21 04:39 INR 0.95 (0.87-1.13) 02/27/21 04:39 APTT 91.7 Sec. (24.2-36.6) H* 02/27/21 04:39 Heparin Anti-Xa Level 0.52 U.I./ml (0.3-0.7) 02/27/21 01:20 Sodium 139 mmol/L (137-145) 02/27/21 04:39 Potassium 3.7 mmol/L (3.6-5.0) 02/27/21 04:39 Chloride 103.1 mmol/L (98-107) 02/27/21 04:39 Carbon Dioxide 25 mmol/L (22-30) 02/27/21 04:39 Anion Gap 15 mmol/L 02/27/21 04:39 BUN 12 mg/dL (9-20) 02/27/21 04:39 Creatinine 0.8 mg/dL (0.8-1.3) 02/27/21 04:39 Estimated GFR > 60 ml/min 02/27/21 04:39 BUN/Creatinine Ratio 15 % 02/27/21 04:39 Glucose 115 mg/dL (75-100) H 02/27/21 04:39 POC Glucose 137 mg/dL (70-105) H 02/27/21 04:31 Hemoglobin A1c 7.7 % (4-6) H 02/24/21 06:05 Calcium 9.2 mg/dL (8.4-10.2) 02/27/21 04:39 Total Bilirubin 0.30 mg/dL (0.1-1.2) 02/25/21 05:15 AST 27 units/L (5-40) 02/25/21 05:15 ALT 15 units/L (7-56) 02/25/21 05:15 Alkaline Phosphatase 82 units/L (35-129) 02/25/21 05:15 Troponin T 0.268 ng/mL (0.00-0.029) H* 02/25/21 10:12 Total Protein 7.4 g/dL (6.3-8.2) 02/25/21 05:15 Albumin 4.1 g/dL (3.9-5) 02/25/21 05:15 Albumin/Globulin Ratio 1.2 % 02/25/21 05:15 Triglycerides 71 mg/dL (2-149) 02/24/21 07:35 Cholesterol 127 mg/dL (50-199) 02/24/21 07:35 LDL Cholesterol Direct 74 mg/dL (50-130) 02/24/21 07:35 HDL Cholesterol 43 mg/dL (40-59) 02/24/21 07:35 Cholesterol/HDL Ratio 2.95 % 02/24/21 07:35 Ortiz/IV: Voiding Method Urinal Active Medications - Current Medications Current Medications: Generic Name Dose Route Start Last Admin Trade Name Freq PRN Reason Stop Dose Admin Acetaminophen 650 mg 02/24/21 05:14 Acetaminophen 325 Mg Tab PO Q4H PRN Pain MILD(1-3)/Fever >100.5/TOTH Al Hydrox/Mg Hydrox/Simethicone 30 ml 02/24/21 05:14 Alum-Mag Hydroxide-Simethicone [phone]/5ml Oral Liqd 30 Ml PO Q4H PRN Indigestion Albuterol 2.5 mg 02/24/21 05:14 Albuterol 2.5 Mg/3 Ml Nebu IH Q4HRT PRN Shortness Of Breath Amlodipine Besylate 10 mg 02/24/21 10:00 02/27/21 15:17 Amlodipine 10 Mg Tab PO 10 mg QDAY BRIELLE Administration Aspirin 325 mg 02/24/21 10:00 02/27/21 14:24 Aspirin 325 Mg Tab PO Not Given QDAY BRIELLE Atorvastatin Calcium 40 mg 02/24/21 22:00 02/26/21 22:50 Atorvastatin 40 Mg Tab PO 40 mg QHS BRIELLE Administration Benzonatate 100 mg 02/24/21 06:53 Benzonatate 100 Mg Cap PO Q8H PRN Cough Carvedilol 25 mg 02/24/21 10:00 02/27/21 15:17 Carvedilol 25 Mg Tab PO 25 mg BID BRIELLE Administration Clopidogrel Bisulfate 75 mg 02/24/21 10:00 02/27/21 10:11 Clopidogrel 75 Mg Tab PO Not Given QDAY BRIELLE Famotidine 20 mg 02/26/21 22:00 02/27/21 15:19 Famotidine 20 Mg Tab PO Not Given BID BRIELLE Fluticasone Propionate 50 mcg 02/24/21 10:00 02/27/21 15:18 Fluticasone Propionate Nasal Dupont 16 Gm NS Not Given QDAY BRIELLE Sodium Chloride 500 mls @ 50 mls/hr 02/27/21 08:00 02/27/21 10:08 Nacl 0.9% 500 Ml IV 02/27/21 17:59 50 mls/hr DIRECT BRIELLE Administration Magnesium Hydroxide 30 ml 02/24/21 05:14 Magnesium Hydroxide (Mom) Oral Liqd Udc PO Q4H PRN Constipation Metoclopramide HCl 10 mg 02/24/21 05:14 Metoclopramide 10 Mg/2 Ml Inj IV Q6H PRN Nausea And Vomiting Nicotine 21 mg 02/24/21 10:00 02/27/21 15:18 Nicotine 21 Mg/24 Hr Patch TD Not Given QDAY BRIELLE Ondansetron HCl 4 mg 02/24/21 05:14 02/27/21 10:49 Ondansetron 4 Mg/2 Ml Inj IV 4 mg Q8H PRN Administration Nausea And Vomiting Senna 8.6 mg 02/24/21 05:14 Sennosides 8.6 Mg Tab PO Q12HR PRN Constipation Sodium Chloride 10 ml 02/24/21 10:00 02/27/21 15:19 Sodium Chloride 0.9% 10 Ml Flush Syringe IV Not Given BID BRIELLE Sodium Chloride 10 ml 02/24/21 05:14 Sodium Chloride 0.9% 10 Ml Flush Syringe IV PRN PRN LINE FLUSH Tramadol HCl 50 mg 02/24/21 05:14 Tramadol 50 Mg Tab PO Q6H PRN Pain, Moderate (4-6)
[2021-02-28 08:42] VITALS: BP 115/66
[2021-02-28] MEDS ORDERED: ASPIRIN 81 MG TAB CHEW PO SCH (10:00)
[2021-02-28] MEDS: carvediloL 25 MG TAB PO SCH (10:28)
[2021-02-28] MEDS: CLOPIDOGREL 75 MG TAB PO SCH (10:28)
[2021-02-28] MEDS: NICOTINE 21 MG/24 HR PATCH TD SCH (10:29)
[2021-02-28] MEDS: FLUTICASONE PROPIONATE NASAL SPRAY 16 GM NS SCH (10:29)
[2021-02-28] MEDS: amLODIPine 10 MG TAB PO SCH (10:29)
[2021-02-28] MEDS: FAMOTIDINE 20 MG TAB PO SCH (10:29)
--- NOTE | 2021-02-28 10:50 | Progress Note ---
Assessment and Plan NSTEMI * Echocardiogram 02/24/2021: LVEF is 55 to 60% LV normal size. LV SF normal. RV SF normal. RVSP is 22 mmHg. * [facility] with PCI 02/27/2021. ERIC placed mid RCA. DAPT with ASA 81, Plavix 75 going forward x1 year. Continue Coreg 25 mg twice daily, atorvastatin 40 mg nightly * Postop inspection left groin cath site inspected Telfa Tegaderm in place, no bleeding or hematoma noted. Limb is warm and nonedematous. Distal PMS intact Hypertension * Continue current antihypertensive regimen Tobacco, illicit drug use * Cessation encouraged Patient currently stable cardiac status. Patient may discharge from cardiology standpoint. Patient should follow-up with Dr. Juliano Martinez, [facility] guest specialist in our [place] location on 03/12/2021 at 9 AM. #[phone] This patient seen in conjunction with Dr Covarrubias who agrees with this assessment plan of care - Patient Problems (1) Diabetes mellitus Current Visit: Yes Status: Chronic (2) Chest pain Current Visit: Yes Status: Acute Qualifiers: Chest pain type: unspecified Qualified Code(s): R07.9 - Chest pain, unspecified (3) History of CVA (cerebrovascular accident) Current Visit: Yes Status: Chronic (4) Dyslipidemia Current Visit: Yes Status: Chronic (5) DVT prophylaxis Current Visit: Yes Status: Acute (6) HTN (hypertension) Current Visit: Yes Status: Chronic (7) Polysubstance abuse Current Visit: Yes Status: Chronic (8) Tobacco abuse Current Visit: Yes Status: Chronic (9) NSTEMI (non-ST elevated myocardial infarction) Current Visit: Yes Status: Acute Subjective Date of service: 02/28/21 Principal diagnosis: Coronary Artery Dsease Interval history: Patient resting comfortably in bed. No shortness of breath or chest pain overnight. Telemetry reviewed: Sinus rhythm 71. No events Objective Last Vital Signs Temp 97.6 F 02/28/21 08:01 Pulse 73 02/28/21 08:01 Resp 18 02/28/21 08:01 BP 115/66 02/28/21 08:01 Pulse Ox 98 02/28/21 08:01 - Physical Examination General: No Apparent Distress HEENT: Positive: PERRL, Normocephaly, Mucus Membranes Moist Neck: Positive: neck supple, trachea midline Cardiac: Positive: Reg Rate and Rhythm, S1/S2 Lungs: Positive: Normal Exam, Normal Breath Sounds Neuro: Positive: Grossly Intact, Other (Right-sided deficit secondary to stroke history) Abdomen: Positive: Unremarkable, Soft Skin: Positive: Other (Left groin cath site inspected Telfa Tegaderm in place no bleeding or hematoma noted.). Negative: Rash, Wound Musculoskeletal: No Pain Extremities: Present: upper extr. pulses, lower extr. pulses. Absent: edema - Imaging and Cardiology EKG: report reviewed, image reviewed Echo: report reviewed (Echocardiogram 02/24/2021: LVEF is 55 to 60% LV normal size. LV SF normal. RV SF normal. RVSP is 22 mmHg.) Cardiac cath: report reviewed ([facility] 02/26/2021: Severe mid RCA occlusion. Will plan for staged PCI in a.m.) - Telemetry EKG Rhythm: Sinus Rhythm - EKG Sinus rhythms and dysrhythmias: sinus rhythm
--- NOTE | 2021-02-28 14:17 | Discharge Summary ---
Providers - Providers Date of Admission: 02/27/21 08:19 Date of discharge: 02/28/21 Attending physician: GENESIS SLADE MD 02/24/21 Consult to Cardiac Rehabilitation [CONS] Routine Reason For Exam: Phase I 02/24/21 05:14 Consult to Physician [CONS] Routine Comment: Consulting Provider: CARMELA PACHECO Physician Instructions: Reason For Exam: chest pain 02/24/21 06:20 Occupational Therapy Evaluate and Treat [CONS] Routine Comment: Reason For Exam: right sided weakness Physical Therapy Evaluation and Treat [CONS] Routine Comment: Reason For Exam: right sided weakness Primary care physician: PUBLIC RELATIONS SPECIALIST Hospitalization Condition: Good Hospital course: 65-year-old -[place] male who presents with acute chest pain NSTEMI Cardiology consulted Cardiac catheterization per cardiology on 02/26/2021, occlusion of RCA Cardiac catheterization with PCI of RCA, ERIC placed. On 02/27/2021 Aspirin and Plavix for at least 1 year Coreg 25 mg twice daily Atorvastatin daily Hypertension Continue Coreg History of CVA Continue aspirin and Plavix Tobacco use Cessation History Interval history: 02/27/2021: Patient seen and examined after cardiac catheterization, ERIC placed in RCA. No complications. 02/28/2021: Patient seen and examined, no chest pain or shortness of breath, consulted with cardiology, patient is safe for discharge. Continue aspirin Plavix and Coreg. Disposition: DC- TO HOME OR SELFCARE Final Discharge Diagnosis (Prints w/discharge instructions): NSTEMI type II. Hypertension. History of CVA. Tobacco abuse Time spent for discharge: 35 minutes Core Measure Documentation - Palliative Care Palliative Care/ Comfort Measures: Not Applicable - Core Measures Any of the following diagnoses?: none Exam - Physical Exam Narrative exam: General appearance: no acute distress, well-nourished EENT: PERRL, EOM intact, hearing intact, clear oral mucosa Neck: Present: supple, normal ROM Respiratory: bilateral CTA, negative: rales, rhonchi, wheezing Cardiovascular: Regular rate/rhythm, Normal S1 & S2. No gallop, rub, femoral site of catheterization without bleeding or swelling Extremities: no ischemia, No edema, normal temperature, normal color, Full ROM Abdominal: soft, no tenderness, non-distended, normal bowel sounds Integumentary: Present: clear, warm, dry no wounds, no erythema noted Psychiatric: appropriate mood/affect, intact judgment & insight Neurologic: CNII-XII intact, moves all extremities, no sensory or motor abnormalities - Constitutional Vitals: Temp Pulse Resp BP Pulse Ox 97.6 F 82 18 115/66 98 02/28/21 08:01 02/28/21 11:00 02/28/21 08:01 02/28/21 08:01 02/28/21 08:01 Plan Activity: no restrictions Weight Bearing Status: Full Weight Bearing Diet: low salt Follow up with: CARL MARVIN MD [Staff Physician] - 7 Days PRIMARY CAREMD [Primary Care Provider] - 3-5 Days Forms: [facility] PCI D/C Instructions, Discharge Signature Page Prescriptions: amLODIPine 10 mg PO QDAY #30 tablet Aspirin 325 mg PO QDAY #30 tablet carvediloL [Coreg] 25 mg PO BID #180 tablet Clopidogrel [Plavix] 75 mg PO QDAY #30 tablet Pantoprazole [Protonix] 40 mg PO QDAY #30 tablet
== END 2021-02-28 14:42 | disposition still patient (30) | DRG 246 ==
LOC: ED 01:46 → 4A 04:02 → OBSVTOIN 02-27 08:19
PROVIDERS: ADMIT Internal Medicine Geriatric Medicine; ATTEND Family Medicine
PROC: 4A023N6 Measurement of Cardiac Sampling and Pressure, Right Heart, Percutaneous Approach (ICD-10-PCS; 2021-02-26)
PROC: B2111ZZ Fluoroscopy of Multiple Coronary Arteries using Low Osmolar Contrast (ICD-10-PCS; 2021-02-26)
PROC: B2151ZZ Fluoroscopy of Left Heart using Low Osmolar Contrast (ICD-10-PCS; 2021-02-26)
PROC: 027034Z Dilation of Coronary Artery, One Artery with Drug-eluting Intraluminal Device, Percutaneous Approach (ICD-10-PCS; principal; 2021-02-27)
PROC: B2111ZZ Fluoroscopy of Multiple Coronary Arteries using Low Osmolar Contrast (ICD-10-PCS; 2021-02-27)
PROC: B240ZZ3 Ultrasonography of Single Coronary Artery, Intravascular (ICD-10-PCS; 2021-02-27)
DX: I21.4 Non-ST elevation (NSTEMI) myocardial infarction (principal); I50.31 Acute diastolic (congestive) heart failure; R07.9 Chest pain, unspecified; I10 Essential (primary) hypertension; E78.5 Hyperlipidemia, unspecified; J45.909 Unspecified asthma, uncomplicated; E11.9 Type 2 diabetes mellitus without complications; F17.200 Nicotine dependence, unspecified, uncomplicated; F19.10 Other psychoactive substance abuse, uncomplicated; Z79.899 Other long term (current) drug therapy; Z79.891 Long term (current) use of opiate analgesic; Z79.01 Long term (current) use of anticoagulants; Z79.82 Long term (current) use of aspirin; Z86.73 Personal history of transient ischemic attack (TIA), and cerebral infarction without residual deficits; Z82.49 Family history of ischemic heart disease and other diseases of the circulatory system
CPT/HCPCS: 36415; 71045; 80048; 80053; 80061; 82962; 83036; 84484; 85014; 85018; 85025; 85027; 85049; 85520; 85610; 85730; 92928; 92978; 93005; 93306; 93458; 96374; 99406; G0378; A9270-GY; C1725; C1753; C1769; C1874; C1887; C1894; C9600; J0360; J0461; J1644; J1650; J2250; J2405; J3010; J7040; Q9967

== ENCOUNTER 2021-09-23 03:17 | Emergency (ER) | payer MEDICARE ==
[2021-09-23] MEDS ORDERED: ACETAMINOPHEN 500 MG TAB PO ONE (03:44)
[2021-09-23] MEDS ORDERED: IBUPROFEN 600 MG TAB PO ONE (03:44)
--- NOTE | 2021-09-23 04:29 | Emergency Department Report ---
ED Fall HPI - General Chief Complaint: Fall Stated Complaint: FALL Source: patient Mode of arrival: Ambulatory - History of Present Illness Initial Comments: Patient is a 66-year-old -[place] male with a history of hypertension, CVA x2 and asthma who presents to the ED with complaint of acute onset persistent right lateral rib pain after he slipped off his bed and landed on his right side and in the process hit his right lateral ribs on a lamp stand 2 days ago. Patient states that the pain has been persistent and especially worse with deep inhalation or movement and lifting. Patient states that he was unable to sleep because of worsening pain and decided come to the ED for evaluation. Patient denies hemoptysis, shortness of breath, dizziness, syncope, seizures, loss of consciousness, head or neck injuries, dental injuries, back pain, nausea and vomiting, numbness and tingling or weakness of upper and lower extremities bilaterally. 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 denies: headache, neck pain, numbness, weakness, shortness of breath, abdominal pain, hematuria, unable to walk, lightheaded, vertigo, confusion - Related Data Previous Rx's Medication Instructions Recorded Last Taken Type Rosuvastatin (Nf) [Crestor] 20 mg PO QHS #20 tablet 01/27/14 Unknown Rx Albuterol Sulfate [Proair 90 mcg IH Q4HR PRN #2 aer.[email or web address] 07/25/18 Unknown Rx Respiclick] Benzonatate [Tessalon Perles] 100 mg PO Q8HR PRN #30 capsule 07/25/18 Unknown Rx Fluticasone [Flonase] 1 spray NS QDAY #1 bottle 07/25/18 Unknown Rx Ibuprofen [Motrin 400 MG tab] 400 mg PO Q8H PRN #30 tablet 07/25/18 Unknown Rx Nicotine [Nicotine Patch] 1 each TD QDAY #30 patch.td24 07/25/18 Unknown Rx Acetaminophen/Codeine [Tylenol 1 tab PO Q6H PRN #12 tab 08/24/19 Unknown Rx /Codeine # 3 tab] Pantoprazole [Protonix] 40 mg PO QDAY #30 tablet 02/26/21 Unknown Rx amLODIPine 10 mg PO QDAY #30 tablet 02/26/21 Unknown Rx Aspirin 325 mg PO QDAY #30 tablet 02/28/21 Unknown Rx Clopidogrel [Plavix] 75 mg PO QDAY #30 tablet 02/28/21 Unknown Rx carvediloL [Coreg] 25 mg PO BID #180 tablet 02/28/21 Unknown Rx Baclofen 20 mg PO Q12H PRN #24 tab 09/23/21 Unknown Rx Diclofenac Sodium 50 mg PO Q8H PRN #30 tab 09/23/21 Unknown Rx traMADoL [Ultram] 50 mg PO Q6HR PRN #12 tablet 09/23/21 Unknown Rx Allergies Allergy/AdvReac Type Severity Reaction Status Date / Time No Known Allergies Allergy Verified 02/24/21 06:44 ED Review of Systems ROS: Stated complaint: FALL Other details as noted in HPI Constitutional: denies: chills, fever, weakness Eyes: denies: eye pain, eye discharge, vision change ENT: denies: ear pain, throat pain, dental pain, hearing loss, congestion Respiratory: denies: cough, shortness of breath, wheezing Cardiovascular: chest pain (right lateral rib pain). denies: palpitations, dyspnea on exertion, edema, syncope, paroxysmal nocturnal dyspnea Endocrine: no symptoms reported Gastrointestinal: denies: abdominal pain, nausea, vomiting, diarrhea Genitourinary: denies: urgency, dysuria Musculoskeletal: denies: back pain, joint swelling, arthralgia Skin: denies: rash, lesions Neurological: denies: headache, weakness, paresthesias Psychiatric: denies: anxiety, depression Hematological/Lymphatic: denies: easy bleeding, easy bruising ED Past Medical Hx - Past Medical History Previous Medical History?: Yes Hx Hypertension: Yes Hx CVA: Yes (X 2 right sided deficits) Hx Congestive Heart Failure: No Hx Diabetes: No Hx GERD: No Hx Asthma: Yes Hx COPD: No Hx HIV: No - Surgical History Past Surgical History?: Yes Additional Surgical History: RIGHT WRIST, SHOULDER SURGERY. RIGHT KNEE SURGERY - Social History Smoking Status: Current Every Day Smoker Substance Use Type: None - Medications Home Medications: Home Medications Medication Instructions Recorded Confirmed Last Taken Type Rosuvastatin (Nf) [Crestor] 20 mg PO QHS #20 tablet 01/27/14 02/27/21 Unknown Rx Albuterol Sulfate [Proair 90 mcg IH Q4HR PRN #2 aer.pow.ba 07/25/18 02/27/21 Unknown Rx Respiclick] Benzonatate [Tessalon Perles] 100 mg PO Q8HR PRN #30 capsule 07/25/18 02/27/21 Unknown Rx Fluticasone [Flonase] 1 spray NS QDAY #1 bottle 07/25/18 02/27/21 Unknown Rx Ibuprofen [Motrin 400 MG tab] 400 mg PO Q8H PRN #30 tablet 07/25/18 02/27/21 Unknown Rx Nicotine [Nicotine Patch] 1 each TD QDAY #30 patch.td24 07/25/18 02/27/21 Unknown Rx Acetaminophen/Codeine [Tylenol 1 tab PO Q6H PRN #12 tab 08/24/19 02/27/21 Unknown Rx /Codeine # 3 tab] Pantoprazole [Protonix] 40 mg PO QDAY #30 tablet 02/26/21 Unknown Rx amLODIPine 10 mg PO QDAY #30 tablet 02/26/21 Unknown Rx Aspirin 325 mg PO QDAY #30 tablet 02/28/21 Unknown Rx Clopidogrel [Plavix] 75 mg PO QDAY #30 tablet 02/28/21 Unknown Rx carvediloL [Coreg] 25 mg PO BID #180 tablet 02/28/21 Unknown Rx Baclofen 20 mg PO Q12H PRN #24 tab 09/23/21 Unknown Rx Diclofenac Sodium 50 mg PO Q8H PRN #30 tab 09/23/21 Unknown Rx traMADoL [Ultram] 50 mg PO Q6HR PRN #12 tablet 09/23/21 Unknown Rx ED Physical Exam - General Limitations: No Limitations General appearance: alert, in no apparent distress - Head Head exam: Present: atraumatic, normocephalic, normal inspection - Eye Eye exam: Present: normal appearance, PERRL, EOMI Pupils: Present: normal accommodation - ENT ENT exam: Present: normal exam, normal orophraynx, mucous membranes moist, TM's normal bilaterally, normal external ear exam - Neck Neck exam: Present: normal inspection, full ROM. Absent: tenderness, lymphadenopathy, thyromegaly - Respiratory Respiratory exam: Present: normal lung sounds bilaterally, chest wall tenderness (Palpable reproducible right lateral rib tenderness). Absent: respiratory distress, wheezes, rales, rhonchi, accessory muscle use, decreased breath sounds, prolonged expiratory - Cardiovascular Cardiovascular Exam: Present: regular rate, normal rhythm, normal heart sounds. Absent: systolic murmur, diastolic murmur, rubs, gallop - GI/Abdominal GI/Abdominal exam: Present: soft, normal bowel sounds. Absent: tenderness, guarding, rebound, hyperactive bowel sounds, hypoactive bowel sounds, organomegaly - Extremities Exam Extremities exam: Present: normal inspection, full ROM, normal capillary refill - Back Exam Back exam: Present: normal inspection, full ROM. Absent: tenderness, CVA tenderness (R), CVA tenderness (L), muscle spasm, paraspinal tenderness, rash noted - Neurological Exam Neurological exam: Present: alert, oriented X3, CN II-XII intact, normal gait, reflexes normal - Psychiatric Psychiatric exam: Present: normal affect, normal mood - Skin Skin exam: Present: warm, dry, intact, normal color. Absent: rash ED Course Vital Signs 09/23/21 09/23/21 03:27 03:50 Temperature 98.6 F Pulse Rate 88 Respiratory 18 14 Rate Blood Pressure 132/91 O2 Sat by Pulse 98 Oximetry ED Medical Decision Making - Radiology Data Radiology results: report reviewed, image reviewed Right ribs and chest x-ray showed no active cardiopulmonary disease, no acute rib fractures, no pleural effusion or pneumothorax. - Medical Decision Making This is a 66-year-old -[place] male with a history of hypertension, CVA x2 and asthma who presents to the ED with complaint of acute onset persistent right lateral rib pain after he slipped off his bed and landed on his right side and in the process hit his right lateral ribs on a lamp stand 2 days ago. Tejinder stanton states that the pain has been persistent and especially worse with deep inhalation or movement and lifting. Patient states that he was unable to sleep because of worsening pain and decided come to the ED for evaluation. In the ED, patient is alert and oriented x3 and is not in any distress. Patient was treated for pain in the ED. Right lateral rib and chest x-ray showed no acute cardiopulmonary abnormalities, pneumothorax, pleural effusion or acute rib fractures. On reevaluation, patient's pain is moderately controlled with medication. Patient will discharge home on pain medications and advised follow- up with his primary care physician in 5 to 7 days for reevaluation or return to the ED immediately if symptoms get worse. - Differential Diagnosis rib fracture; rib contusion; muscle strain; pneumothorax; Critical care attestation.: If time is entered above; I have spent that time in minutes in the direct care of this critically ill patient, excluding procedure time. ED Disposition Clinical Impression: Contusion of rib on right side Qualifiers: Encounter type: initial encounter Qualified Code(s): S20.211A - Contusion of right front wall of thorax, initial encounter Contusion of right chest wall Qualifiers: Encounter type: initial encounter Qualified Code(s): S20.211A - Contusion of right front wall of thorax, initial encounter Disposition: HOME / SELF CARE / HOMELESS Is pt being admited?: No Does the pt Need Aspirin: No Condition: Stable Instructions: Contusion, Evif-ac-Paux, Rib Contusion Additional Instructions: The right ribs and chest x-ray showed no acute rib fractures or subluxations, no pneumothorax or pleural effusion or any other cardiopulmonary abnormalities. Therefore take medication with food, drink plenty of fluids and follow-up with your primary care physician in 5 to 7 days for reevaluation. Return to the ED immediately if symptoms get worse. Prescriptions: Baclofen 20 mg PO Q12H PRN #24 tab PRN Reason: Muscle Spasm Diclofenac Sodium 50 mg PO Q8H PRN #30 tab PRN Reason: Pain , Severe (7-10) traMADoL [Ultram] 50 mg PO Q6HR PRN #12 tablet PRN Reason: Pain Referrals: [facility] [Provider Group] - 3-5 Days Time of Disposition: 05:24 Print Language: SAMI
[2021-09-23 05:59] VITALS: BP 126/80
--- NOTE | 2021-09-25 15:14 | XRay Report ---
CHEST 1 VIEW INDICATION / CLINICAL INFORMATION: FALL - RIGHT LATERAL RIB PAIN. COMPARISON: None available. TECHNIQUE: AP chest with multiple AP and oblique views of the right rib cage. FINDINGS: SUPPORT DEVICES: None. HEART / MEDIASTINUM: No significant abnormality. LUNGS / PLEURA: No significant pulmonary or pleural abnormality. No pneumothorax. ADDITIONAL FINDINGS: No significant additional findings. IMPRESSION: 1. No active cardiopulmonary disease. No acute rib fractures. Signer Name: Augustine Garcia II, MD Signed: 09/23/2021 4:39 AM Workstation Name: [id number]
== END 2021-09-23 06:02 | disposition home or self-care (01) ==
LOC: ED 03:17
DX: S20.211A Contusion of right front wall of thorax, initial encounter (principal); I10 Essential (primary) hypertension; J45.909 Unspecified asthma, uncomplicated; F17.200 Nicotine dependence, unspecified, uncomplicated; X58.XXXA Exposure to other specified factors, initial encounter; Y93.89 Activity, other specified; Y92.89 Other specified places as the place of occurrence of the external cause; Y99.8 Other external cause status
CPT/HCPCS: 99283

== ENCOUNTER 2021-10-25 17:00 | Emergency (ER) | payer MEDICARE ==
--- NOTE | 2021-10-25 22:39 | Event Note ---
ED Screening Note Date of service: 10/25/21 Time: 22:38 ED Screening Note: Patient 66-year-old male with history of hypertension, CVA, SC, diabetes type 2, hypertension, who presents for epigastric pain and dark stools x3 days. Patient is on Plavix. Patient denies chest pain there is no nausea vomiting no shortness of breath. This initial assessment/diagnostic orders/clinical plan/treatment(s) is/are subject to change based on patients health status, clinical progression and re-assessment by fellow clinical providers in the ED. Further treatment and workup at subsequent clinical providers discretion. Patient/guardian urged not to elope from the ED as their condition may be serious if not clinically assessed and managed. Initial orders include: cxr, ekg, trop, cmp, cbc, pt, ptt, iv
[2021-10-25] MEDS ORDERED: PANTOPRAZOLE 40 MG INJ IV ONE (22:52)
--- NOTE | 2021-10-25 22:53 | Emergency Department Report ---
ED General Adult HPI - General Chief complaint: GI Bleed Stated complaint: DIGESTIVE ISSUES/STOOL IS BLACK Time Seen by Provider: 10/25/21 22:38 Source: patient, RN notes reviewed Mode of arrival: Ambulatory Limitations: No Limitations - History of Present Illness Initial comments: During the history and physical examination, I am chaperoned by commissions analyst Saud The patient is a pleasant 66-year-old gentleman with a history of NSTEMI, stroke, tobacco use, mild obesity, currently medicated with aspirin and Plavix. He denies other systemic anticoagulation. He presents to the ER with a complaint of painless dark tarry stools, and "digestive issues." The patient denies physical pain. -: Gradual, days(s) Consistency: intermittent Improves with: none Worsens with: none Associated Symptoms: denies other symptoms - Related Data Previous Rx's Medication Instructions Recorded Last Taken Type Rosuvastatin (Nf) [Crestor] 20 mg PO QHS #20 tablet 01/27/14 Unknown Rx Albuterol Sulfate [Proair 90 mcg IH Q4HR PRN #2 aer.[email or web address] 07/25/18 Unknown Rx Respiclick] Benzonatate [Tessalon Perles] 100 mg PO Q8HR PRN #30 capsule 07/25/18 Unknown Rx Fluticasone [Flonase] 1 spray NS QDAY #1 bottle 07/25/18 Unknown Rx Nicotine [Nicotine Patch] 1 each TD QDAY #30 patch.td24 07/25/18 Unknown Rx Pantoprazole [Protonix] 40 mg PO QDAY #30 tablet 02/26/21 Unknown Rx amLODIPine 10 mg PO QDAY #30 tablet 02/26/21 Unknown Rx Aspirin 325 mg PO QDAY #30 tablet 02/28/21 Unknown Rx Clopidogrel [Plavix] 75 mg PO QDAY #30 tablet 02/28/21 Unknown Rx carvediloL [Coreg] 25 mg PO BID #180 tablet 02/28/21 Unknown Rx Pantoprazole [Protonix TAB] 40 mg PO ONCE 30 Days #30 tablet 10/26/21 Unknown Rx Allergies Allergy/AdvReac Type Severity Reaction Status Date / Time No Known Allergies Allergy Verified 02/24/21 06:44 ED Review of Systems ROS: Stated complaint: DIGESTIVE ISSUES/STOOL IS BLACK Other details as noted in HPI Comment: All other systems reviewed and negative Gastrointestinal: melena. denies: hematemesis, hematochezia ED Past Medical Hx - Past Medical History Hx Hypertension: Yes Hx CVA: Yes (X 2 right sided deficits) Hx Congestive Heart Failure: No Hx Diabetes: No Hx GERD: No Hx Asthma: Yes Hx COPD: No Hx HIV: No - Surgical History Additional Surgical History: RIGHT WRIST, SHOULDER SURGERY. RIGHT KNEE SURGERY - Social History Smoking Status: Current Every Day Smoker Substance Use Type: None - Medications Home Medications: Home Medications Medication Instructions Recorded Confirmed Last Taken Type Rosuvastatin (Nf) [Crestor] 20 mg PO QHS #20 tablet 01/27/14 02/27/21 Unknown Rx Albuterol Sulfate [Proair 90 mcg IH Q4HR PRN #2 aer.pow.ba 07/25/18 02/27/21 Unknown Rx Respiclick] Benzonatate [Tessalon Perles] 100 mg PO Q8HR PRN #30 capsule 07/25/18 02/27/21 Unknown Rx Fluticasone [Flonase] 1 spray NS QDAY #1 bottle 07/25/18 02/27/21 Unknown Rx Nicotine [Nicotine Patch] 1 each TD QDAY #30 patch.td24 07/25/18 02/27/21 Unknown Rx Pantoprazole [Protonix] 40 mg PO QDAY #30 tablet 02/26/21 Unknown Rx amLODIPine 10 mg PO QDAY #30 tablet 02/26/21 Unknown Rx Aspirin 325 mg PO QDAY #30 tablet 02/28/21 Unknown Rx Clopidogrel [Plavix] 75 mg PO QDAY #30 tablet 02/28/21 Unknown Rx carvediloL [Coreg] 25 mg PO BID #180 tablet 02/28/21 Unknown Rx Pantoprazole [Protonix TAB] 40 mg PO ONCE 30 Days #30 tablet 10/26/21 Unknown Rx ED Physical Exam - General Limitations: No Limitations General appearance: alert, in no apparent distress - Head Head exam: Present: atraumatic, normocephalic - Eye Eye exam: Present: normal appearance, EOMI. Absent: nystagmus - ENT ENT exam: Present: normal exam, normal orophraynx, mucous membranes moist, normal external ear exam - Neck Neck exam: Present: normal inspection, full ROM. Absent: tenderness, meningismus - Respiratory Respiratory exam: Present: normal lung sounds bilaterally. Absent: respiratory distress, wheezes, rales, rhonchi, stridor, decreased breath sounds - Cardiovascular Cardiovascular Exam: Present: regular rate, normal rhythm, normal heart sounds. Absent: bradycardia, tachycardia, irregular rhythm, systolic murmur, diastolic murmur, rubs, gallop - GI/Abdominal GI/Abdominal exam: Present: soft, normal bowel sounds. Absent: distended, tenderness, guarding, rebound, rigid, pulsatile mass - Rectal Rectal exam: Present: normal inspection, normal rectal tone, heme (+) stool, other (Chaperoned by commissions analyst Saud). Absent: black stool, bloody stool - Extremities Exam Extremities exam: Present: normal inspection, full ROM, normal capillary refill, other (2+ pulses noted in the bilateral upper and lower extremities. There is no palpable cord. negative Homans sign. Muscular compartments are soft. The pelvis is stable.). Absent: pedal edema, calf tenderness - Back Exam Back exam: Present: normal inspection, full ROM. Absent: tenderness, CVA tenderness (R), CVA tenderness (L), paraspinal tenderness, vertebral tenderness - Neurological Exam Neurological exam: Present: alert, oriented X3, normal gait, other (No facial droop. Tongue midline. Extraocular movements intact bilaterally. Facial sensation intact to light touch in V1, V2, V3 distribution bilaterally. 5 and a 5 strength in 4 extremities. Sensation intact to light touch in 4 extremities.). Absent: motor sensory deficit - Psychiatric Psychiatric exam: Present: normal affect, normal mood - Skin Skin exam: Present: warm, dry, intact, normal color. Absent: rash ED Course Vital Signs 10/25/21 17:16 Temperature 98.9 F Pulse Rate 90 Respiratory 16 Rate Blood Pressure 123/78 [Left] O2 Sat by Pulse 100 Oximetry - Reevaluation(s) Reevaluation #1: 10/26/21 00:02 Differential diagnosis, including but not limited to: GERD, gastritis, upper GI bleed, angiodysplasia Assessment and plan: 66-year-old gentleman who takes both aspirin and Plavix, presenting with painless complaints of black/dark tarry stools over the past 4 days. His physical exam is benign and unremarkable, rectal exam shows brown stool, which is found to be guaiac positive upon evaluation at the lab. His laboratory studies are unremarkable nonactionable. Patient is declining intravenous Protonix at this time. He presents as awake, alert, oriented, sober, of sound mind, and exhibits decision-making capacity. We will discuss with gastroenterology on-call to determine optimal plan of care. His laboratory studies are nonactionable at this time. 10/26/21 00:09 Discussed with gastroenterology on-call, Dr. Snyder We discussed the patient's history, physical, laboratory studies imaging studies and overall clinical impression. Given unremarkable blood urea nitrogen, brown stool, stable H&H, unremarkable coagulation parameters, unremarkable vital signs, it is advised that the patient's follow-up as soon as possible as an outpatient with gastroenterology, the overcaster advises that he may continue his aspirin and Plavix for the time being, return if worse. Discussed this with the patient. He articulates understanding. He advises that he is reliable to follow-up. Return precautions are reviewed ED Medical Decision Making - Lab Data Result diagrams: 10/25/21 23:02 10/25/21 23:02 Vital Signs 10/25/21 17:16 Temperature 98.9 F Pulse Rate 90 Respiratory 16 Rate Blood Pressure 123/78 [Left] O2 Sat by Pulse 100 Oximetry Lab Results 10/25/21 10/25/21 10/25/21 Range/Units 23:02 23:02 23:02 WBC 8.6 (4.5-11.0) K/mm3 RBC 4.47 (3.65-5.03) M/mm3 Hgb 13.3 (11.8-15.2) gm/dl Hct 39.3 (35.5-45.6) % MCV 88 (84-94) fl MCH 30 (28-32) pg MCHC 34 (32-34) % RDW 14.8 (13.2-15.2) % Plt Count 195 (140-440) K/mm3 Lymph % (Auto) 48.4 H (13.4-35.0) % [place] % (Auto) 9.2 H (0.0-7.3) % Eos % (Auto) 2.4 (0.0-4.3) % Baso % (Auto) 0.8 (0.0-1.8) % Lymph # (Auto) 4.1 (1.2-5.4) K/mm3 [place] # (Auto) 0.8 (0.0-0.8) K/mm3 Eos # (Auto) 0.2 (0.0-0.4) K/mm3 Baso # (Auto) 0.1 (0.0-0.1) K/mm3 Seg Neutrophils % 39.2 L (40.0-70.0) % Seg Neutrophils # 3.4 (1.8-7.7) K/mm3 PT 13.5 (12.2-14.9) Sec. INR 0.93 (0.87-1.13) APTT 33.8 (24.2-36.6) Sec. Sodium 142 (137-145) mmol/L Potassium 4.0 (3.6-5.0) mmol/L Chloride 106.5 (98-107) mmol/L Carbon Dioxide 25 (22-30) mmol/L Anion Gap 15 mmol/L BUN 12 (9-20) mg/dL Creatinine 0.9 (0.8-1.3) mg/dL Estimated GFR > 60 ml/min BUN/Creatinine Ratio 13 % Glucose 158 H (75-100) mg/dL Calcium 8.7 (8.4-10.2) mg/dL Total Bilirubin 0.20 (0.1-1.2) mg/dL AST 12 (5-40) units/L ALT 12 (7-56) units/L Alkaline Phosphatase 104 (35-129) units/L Troponin T < 0.010 (0.00-0.029) ng/mL Total Protein 7.8 (6.3-8.2) g/dL Albumin 4.4 (3.9-5) g/dL Albumin/Globulin Ratio 1.3 % - EKG Data -: EKG Interpreted by Ct EKG shows normal: sinus rhythm Rate: normal - EKG Data 10/26/21 00:03 The EKG is interpreted at 22: 43 Sinus rhythm, 78 bpm. Left axis deviation, left ventricular hypertrophy, right bundle branch block, Q waves in the inferior leads, first-degree AV block. This is an abnormal EKG. This is not a STEMI. T wave abnormalities in inferior leads are less pronounced than when compared to prior EKG. The EKG today is not a STEMI. Critical care attestation.: If time is entered above; I have spent that time in minutes in the direct care of this critically ill patient, excluding procedure time. ED Disposition Clinical Impression: Guaiac positive stools Disposition: HOME / SELF CARE / HOMELESS Is pt being admited?: No Does the pt Need Aspirin: No Condition: Good Additional Instructions: Patient may continue current aspirin and Plavix as prescribed. Do not take Motrin, ibuprofen, Naprosyn, Aleve, alcohol, tobacco or smoke products. Take the Protonix as recommended. Follow-up as soon as possible with an outpatient overcaster, such as [facility]. Call this prescription first thing in the morning to arrange expedited outpatient follow- up. Please return to the emergency room right away with new pain, worsened pain, migration of pain, projectile vomiting, change in mental status, confusion, inability tolerate liquid feeds, new, worsened or different symptoms not present on the initial emergency room evaluation Referrals: TRAVIS BORRERO MD [Staff Physician] - [facility] [Provider Group] - [facility] Forms: Accompanied Note
[2021-10-25 23:19] LABS: Basophils # (Auto) 0.1 K/mm3 (0.0-0.1); Basophils % (Auto) 0.8 % (0.0-1.8); Eosinophils # (Auto) 0.2 K/mm3 (0.0-0.4); Eosinophils % (Auto) 2.4 % (0.0-4.3); Hematocrit 39.3 % (35.5-45.6); Hemoglobin 13.3 gm/dl (11.8-15.2); Lymphocytes # (Auto) 4.1 K/mm3 (1.2-5.4); Lymphocytes % (Auto) 48.4 % (13.4-35.0); Mean Corpuscular HGB Conc 34 % (32-34); Mean Corpuscular Volume 88 fl (84-94); Monocytes # (Auto) 0.8 K/mm3 (0.0-0.8); Monocytes % (Auto) 9.2 % (0.0-7.3); Platelet Count 195 K/mm3 (140-440); Red Blood Count 4.47 M/mm3 (3.65-5.03); Red Cell Distribution Width 14.8 % (13.2-15.2)
[2021-10-25 23:39] LABS: Alanine Aminotransferase 12 units/L (7-56); Albumin 4.4 g/dL (3.9-5); BUN/Creatinine Ratio 13; Blood Urea Nitrogen 12 mg/dL (9-20); Calcium 8.7 mg/dL (8.4-10.2); Hemolysis Index 3
[2021-10-25 23:46] LABS: INR 0.93 (0.87-1.13)
[2021-10-25 23:47] LABS: Partial Thromboplastin Time 33.8 Sec. (24.2-36.6)
[2021-10-26] MEDS ORDERED: PANTOPRAZOLE 40 MG TAB PO ONE (00:09)
[2021-10-26 00:39] VITALS: BP 152/84
--- NOTE | 2021-10-26 09:20 | Electrocardiograph Report ---
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
== END 2021-10-26 00:40 | disposition home or self-care (01) ==
LOC: ED 17:00
DX: R19.5 Other fecal abnormalities (principal); I10 Essential (primary) hypertension; J45.909 Unspecified asthma, uncomplicated
CPT/HCPCS: 36415; 80053; 82270; 84484; 85025; 85610; 85730; 93005; 99283; C9113